=== PATIENT | female | born 1965 | race Caucasian/White ===

== ENCOUNTER → 2017-12-01 11:27 | Outpatient (CLI) | payer BC, SELFPAY ==
[2017-12-01 14:59] LABS: AST(SGOT) 23 U/L (15-37); Alanine Aminotransfer ALT/SGPT 36 U/L (13-56); Albumin, Serum 4.2 g/dL (3.2-5.0); Alkaline Phosphatase 90 U/L (45-117); Bilirubin, Direct 0.07 mg/dL (0.00-0.30); Cholesterol 220 mg/dL (200); Globulin 3.5 g/dL (2.2-4.2); High Density Lipoprotein 82 mg/dL; Protein, Total 7.7 g/dL (6.4-8.2); Triglycerides 113 mg/dL; Uric Acid 5.9 mg/dL (2.6-6.0); Very Low Density Lipoprotein 23 mg/dL (5-40)
== END ==
PROVIDERS: Visit Provider Family Medicine
DX: E78.5 Hyperlipidemia, unspecified (principal); M10.9 Gout, unspecified
CPT/HCPCS: 36415; 80061; 80076; 84550

== ENCOUNTER → 2018-02-08 14:30 | Outpatient (CLI) | payer BC, SELFPAY ==
--- NOTE | 2018-02-08 14:36 | RAD_ITS ---
STUDY: X-RAY - PELVIS REASON FOR EXAM: Female, 52 years old. Pain TECHNIQUE: One view of the pelvis was obtained. COMPARISON: None. FINDINGS: There is a non-specific bowel gas pattern. Normal visualized soft tissue structures. Normal bilateral iliac wings, sacroiliac joints and visualized sacrum. Normal visualized bilateral superior and inferior pubic rami. Normal pubic symphysis. Normal ischial tuberosities. Normal visualized right femoral head. Normal right acetabulum. Normal right hip joint. Normal visualized left femoral head. Normal left acetabulum. Normal left hip joint. RAD/Pelvis 1 or 2 Views IMPRESSION: Normal x-ray examination of the pelvis. Electronically Signed: Vinny Jimenez MD at 19:30 EDT , Service support ,
[2018-02-08 15:55] LABS: Absolute Lymphocyte Count 1.29 X10^3/ul (0.83-4.51); Absolute Neutrophil Count 3.4 X10^3/uL (2.0-7.7); Basophil# 0.02 X10^3/uL; Basophil% 0.4 % (0-1); Eosinophil# 0.13 X10^3/uL; Eosinophils% 2.5 % (0-5); Hemoglobin 14.3 g/dl (12.0-15.0); Lymphocyte # 1.29 X10^3/ul (4.0); Lymphocyte % 25.1 % (19-41); Mean Corp Hgb Conc 33.3 g/gl (32-36); Mean Corpuscular Hgb 32.5 pg (27.0-32.0); Mean Corpuscular Volume 97.7 fL (81-99); Mean Platelet Vol. 10.5 fl (6.2-12.0); Monocyte# 0.33 X10^3/uL; Monocyte% 6.4 % (0-10); Neutrophil # 3.35 X10^3/uL (2.7-7.7); Neutrophil % 65.4 % (47-70); Platelet Count 294 K/mm3 (150-450); RBC Distribution Width CV 13.1 % (11.6-14.6); RBC Distribution Width SD 46.2 fl (35.1-43.9); White Blood Count 5.1 K/mm3 (4.4-11.0)
[2018-02-08 15:57] LABS: POSITIVE COUNT NO; POSITIVE DIFFERENTIAL NO; POSITIVE MORPHOLOGY NO
[2018-02-08 16:05] LABS: Erythrocyte Sedimentation Rate 12 mm/hr (0-30)
[2018-02-08 16:17] LABS: ALB/GLOB Ratio 1.3 RATIO (0.9-2.4); AST(SGOT) 26 U/L (15-37); Alanine Aminotransfer ALT/SGPT 38 U/L (13-56); Albumin, Serum 4.4 g/dL (3.2-5.0); Alkaline Phosphatase 93 U/L (45-117); Anion Gap 7 (5-15); BUN 11 mg/dL (7-18); BUN/Creat Ratio 15.4 RATIO (10-20); CRP < 2.90 mg/L (0.0-3.0); Calcium,Total 9.7 mg/dL (8.5-10.1); Chloride 104 mmol/L (98-107); Creatinine, Serum 0.71 mg/dL (0.55-1.02); EST Glomerular Filtration Rate 92 mL/min (>60); Est Glom Filt Rate - Afr Amer 111 mL/min (>60); Globulin 3.5 g/dL (2.2-4.2); Glucose 78 mg/dL (74-106); Protein, Total 7.9 g/dL (6.4-8.2); Rheumatoid Factor < 10.0 IU/mL (<15); Sodium Level 140 mmol/L (136-145)
[2018-02-10 13:33] LABS: ANTINUCLEAR ANTIBODIES DIRECT Negative (Negative)
[2018-02-15 18:27] LABS: CCP IgG Antibodies 3 units (0-19); HEPATITIS B SURFACE AG Negative (Negative); HLA B27 Negative (.); Hep B Surface Antibodies Non Reactive (.); Hep C Antibodies <0.1 s/co ratio (0.0-0.9)
== END ==
LOC: MTRAD 14:34
PROVIDERS: Family Provider Family Medicine; PCP Family Medicine; Visit Provider Internal Medicine Rheumatology
DX: M06.4 Inflammatory polyarthropathy (principal); M79.7 Fibromyalgia; H35.30 Unspecified macular degeneration; I34.1 Nonrheumatic mitral (valve) prolapse; F41.9 Anxiety disorder, unspecified; F32.89 Other specified depressive episodes; E78.5 Hyperlipidemia, unspecified
CPT/HCPCS: 36415; 72170; 80053; 81374; 85025; 85652; 86038; 86140; 86200; 86431; 86706; 86803; 87340

== ENCOUNTER → 2018-04-13 11:34 | Outpatient (CLI) | payer BC, SELFPAY ==
[2018-04-13 14:27] LABS: Absolute Lymphocyte Count 1.33 X10^3/ul (0.83-4.51); Absolute Neutrophil Count 2.5 X10^3/uL (2.0-7.7); Basophil# 0.02 X10^3/uL; Basophil% 0.5 % (0-1); Eosinophil# 0.15 X10^3/uL; Eosinophils% 3.5 % (0-5); Hematocrit 42.4 % (37-47); Hemoglobin 13.7 g/dl (12.0-15.0); Lymphocyte # 1.33 X10^3/ul (4.0); Lymphocyte % 31.4 % (19-41); Mean Corp Hgb Conc 32.3 g/gl (32-36); Mean Corpuscular Hgb 31.4 pg (27.0-32.0); Mean Corpuscular Volume 97.2 fL (81-99); Mean Platelet Vol. 10.7 fl (6.2-12.0); Monocyte# 0.24 X10^3/uL; Monocyte% 5.7 % (0-10); Neutrophil # 2.49 X10^3/uL (2.7-7.7); Neutrophil % 58.9 % (47-70); Platelet Count 246 K/mm3 (150-450); RBC Distribution Width CV 13.4 % (11.6-14.6); RBC Distribution Width SD 47.7 fl (35.1-43.9); Red Blood Count 4.36 M/mm3 (4.2-5.4); White Blood Count 4.2 K/mm3 (4.4-11.0)
[2018-04-13 14:37] LABS: POSITIVE COUNT NO; POSITIVE DIFFERENTIAL NO; POSITIVE MORPHOLOGY NO
[2018-04-13 14:51] LABS: Anion Gap 8 (5-15); BUN 9 mg/dL (7-18); BUN/Creat Ratio 12.3 RATIO (10-20); Calcium,Total 9.4 mg/dL (8.5-10.1); Chloride 105 mmol/L (98-107); Creatinine, Serum 0.73 mg/dL (0.55-1.02); EST Glomerular Filtration Rate 89 mL/min (>60); Est Glom Filt Rate - Afr Amer 107 mL/min (>60); Glucose 85 mg/dL (74-106); Potassium 4.4 mmol/L (3.5-5.1); Sodium Level 141 mmol/L (136-145); Thyroid Stim Hormone (TSH) 1.92 uIU/mL (0.358-3.74)
== END ==
PROVIDERS: Family Provider Family Medicine; PCP Family Medicine; Visit Provider Family Medicine
DX: R53.83 Other fatigue (principal)
CPT/HCPCS: 36415; 80048; 84443; 85025

== ENCOUNTER → 2018-05-02 05:58 | Outpatient (CLI) | payer BC, SELFPAY ==
--- NOTE | 2018-05-02 18:19 | STRESSREP ---
Stress Test Report Date: 05/02/2018 Procedure: Exercise tolerance test/imaging study Indications: Chest pain Consent: Per the patient Procedure: The patient exercised on a Alexis protocol for 8 minutes completing Stage II and 2 minutes of Stage III achieving a peak heart rate of 160 bpm (94 % predicted maximal heart rate) with a peak blood pressure 156/80 mmHg and a peak MET capacity of 9 METs. The baseline ECG demonstrated sinus rhythm. The peak exercise ECG demonstrated no obvious ECG changes. There were no cardiac dysrhythmias pretest, during exercise, or recovery. The functional capacity was considered good. There was a dull chest discomfort during early recovery with spontaneous resolution. The examination was discontinued secondary to dyspnea. Impression: 1. Technically adequate (percent predicted maximal heart rate greater than 85%) exercise tolerance test 2. Peak exercise ECG with no obvious ECG changes 3. There were no cardiac dysrhythmias pretest, during exercise, or recovery. 4. Nuclear images pending Myocardial perfusion imaging study: Technique: The patient was injected with 11.6 mCi of technetium 99m Cardiolite and subsequently rest SPECT Cardiolite nuclear imaging was obtained in the horizontal long, vertical long, and short axis views. The patient exercised on a Alexis protocol for 8 minutes completing Stage 2 and 2 minutes of Stage III achieving a peak heart rate of 160 bpm (94 % predicted maximal heart rate) with a peak blood pressure 156/80 mmHg and a peak MET capacity of 9 METs. The patient was injected with 33.7 mCi of technetium 99m Cardiolite and subsequently stress SPECT Cardiolite nuclear imaging was obtained in the horizontal long, vertical long, and short axis views. A gated Cardiolite study at peak stress was obtained. Interpretation: Rest and stress SPECT Cardiolite nuclear imaging status post realignment, normalization, and attenuation correction, demonstrates to be uniform tracer uptake at rest. Status post stress there is a small area of subtle diminished tracer uptake in the mid anteroseptal segments. There is end systolic thickening and brightening. The gated Cardiolite study demonstrates myocardial thickening and inward wall motion. The reported LVEF is 56 %. Impression: 1. Rest and stress SPECT Cardiolite nuclear imaging demonstrate no active uniform tracer uptake at rest and status post stress there is a small area of subtle diminished tracer uptake in the mid anteroseptal segments potentially compatible shifting soft tissue attenuation/artifact and would be considered equivocal for stress-induced myocardial ischemia. 2. The gated Cardiolite study reports an LVEF of 56 %. This note was generated with [employer] software. It may contain incorrect words, spelling, and punctuation that were not noted in checking the note before signing.
--- NOTE | 2018-05-02 18:29 | STRESSREP_ITS ---
Stress Test Report Date: 05/02/2018 Procedure: Exercise tolerance test/imaging study Indications: Chest pain Consent: Per the patient Procedure: The patient exercised on a Alexis protocol for 8 minutes completing Stage II and 2 minutes of Stage III achieving a peak heart rate of 160 bpm (94 % predicted maximal heart rate) with a peak blood pressure 156/80 mmHg and a peak MET capacity of 9 METs. The baseline ECG demonstrated sinus rhythm. The peak exercise ECG demonstrated no obvious ECG changes. There were no cardiac dysrhythmias pretest, during exercise, or recovery. The functional capacity was considered good. There was a dull chest discomfort during early recovery with spontaneous resolution. The examination was discontinued secondary to dyspnea. Impression: 1. Technically adequate (percent predicted maximal heart rate greater than 85% ) exercise tolerance test 2. Peak exercise ECG with no obvious ECG changes 3. There were no cardiac dysrhythmias pretest, during exercise, or recovery. 4. Nuclear images pending Myocardial perfusion imaging study: Technique: The patient was injected with 11.6 mCi of technetium 99m Cardiolite and subsequently rest SPECT Cardiolite nuclear imaging was obtained in the horizontal long, vertical long, and short axis views. The patient exercised on a Alexis protocol for 8 minutes completing Stage 2 and 2 minutes of Stage III achieving a peak heart rate of 160 bpm (94 % predicted maximal heart rate) with a peak blood pressure 156/80 mmHg and a peak MET capacity of 9 METs. The patient was injected with 33.7 mCi of technetium 99m Cardiolite and subsequently stress SPECT Cardiolite nuclear imaging was obtained in the horizontal long, vertical long, and short axis views. A gated Cardiolite study at peak stress was obtained. Interpretation: Rest and stress SPECT Cardiolite nuclear imaging status post realignment, normalization, and attenuation correction, demonstrates to be uniform tracer uptake at rest. Status post stress there is a small area of subtle diminished tracer uptake in the mid anteroseptal segments. There is end systolic thickening and brightening. The gated Cardiolite study demonstrates myocardial thickening and inward wall motion. The reported LVEF is 56 %. Impression: 1. Rest and stress SPECT Cardiolite nuclear imaging demonstrate no active uniform tracer uptake at rest and status post stress there is a small area of subtle diminished tracer uptake in the mid anteroseptal segments potentially compatible shifting soft tissue attenuation/artifact and would be considered equivocal for stress-induced myocardial ischemia. 2. The gated Cardiolite study reports an LVEF of 56 %. This note was generated with [employer] software. It may contain incorrect words, spelling, and punctuation that were not noted in checking the note before signing.
== END ==
PROVIDERS: Family Provider Family Medicine; PCP Family Medicine; Visit Provider Family Medicine
DX: R07.9 Chest pain, unspecified (principal)
CPT/HCPCS: 78452; 93017; A9500; A4216

== ENCOUNTER → 2018-09-29 13:57 | Outpatient (CLI) | payer BC, SELFPAY ==
[2018-09-29 15:57] LABS: Anion Gap 8 (5-15); BUN 13 mg/dL (7-18); BUN/Creat Ratio 19.1 RATIO (10-20); Calcium,Total 9.2 mg/dL (8.5-10.1); Chloride 107 mmol/L (98-107); Cholesterol 216 mg/dL (200); Creatinine, Serum 0.68 mg/dL (0.55-1.02); EST Glomerular Filtration Rate 96 mL/min (>60); Est Glom Filt Rate - Afr Amer 117 mL/min (>60); Glucose 81 mg/dL (74-106); High Density Lipoprotein 85 mg/dL; Potassium 4.5 mmol/L (3.5-5.1); Sodium Level 142 mmol/L (136-145); Triglycerides 99 mg/dL; Very Low Density Lipoprotein 20 mg/dL (5-40)
--- OUTSIDE RECORDS SUMMARY | 2018-11-24 13:20 | XMS RPT_ITS ---
:1965 Author Organization OHIP Care Team Providers Name Role Phone RYDER RICHARDSON Attending Unavailable FARHAN KERR Referring Unavailable FARHAN KERR Primary Care Unavailable RYDER RICHARDSON Attending Unavailable FARHAN KERR Referring Unavailable FARHAN KERR Primary Care Unavailable FARHAN KERR Primary Care Unavailable Farhan Kerr Attending Unavailable Farhan Kerr Primary Care Unavailable Farhan Wu Attending Unavailable Farhan Kerr Referring Unavailable Yary Reese Attending Unavailable Yary Reese Referring Unavailable Farhan Kerr Primary Care Unavailable Kerr, Farhan Attending Unavailable Kerr, Farhan Attending Unavailable Kerr, Farhan Referring Unavailable Harish, Farhan Primary Care Unavailable Kerr, Farhan Attending Unavailable Kerr, Farhan Primary Care Unavailable PROBLEMS PROBLEMS DATE TYPE CONDITION / CODE ATTENDING STATUS SOURCE 09/29/2018 Unknown I10 - Essential Farhan Kerr Active [place] (primary[facility] hypertension / Hospital I10(ICD-10) Repository 07/28/2018 Admitting Follow-up / 145() DEBRA, Active [place] [facility] diagnosis [facility] Repository 07/28/2018 Admitting Encounter for DEBRA, Active [facility] diagnosis screening mammogram [facility] for malignant [facility] neoplasm of breast / Center Z12.31(ICD-10) Repository 06/05/2018 Unknown R07.9 - Chest pain, [place], Active [place] unspecified / [facility] R07.9(ICD-10) Hospital Repository 02/08/2018 Unknown 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[place], Active [place] polyarthropathy / [facility] M06.4(ICD-10) Hospital Repository 02/08/2018 Unknown M79.7 - Fibromyalgia [place], Active [place] / M79.7(ICD-10) [facility] Repository 02/08/2018 Unknown H35.30 - Unspecified [place], Active [place] macular degeneration [facility] / H35.30(ICD-10) Hospital Repository 02/08/2018 Unknown I34.1 - Nonrheumatic [place], Active [place] mitral (valve) [facility] prolapse / Hospital I34.1(ICD-10) Repository 02/08/2018 Unknown F41.9 - Anxiety [place], Active [place] disorder, [facility] unspecified / Hospital F41.9(ICD-10) Repository 02/08/2018 Unknown F32.89 - Other [place], Active [place] specified depressive [facility] episodes / Hospital F32.89(ICD-10) Repository 02/08/2018 Unknown E78.5 - [place], Active [place] Hyperlipidemia, [facility] unspecified / Hospital E78.5(ICD-10) Repository 01/30/2018 Admitting Encounter for NA Active [facility] diagnosis screening for [facility] malignant neoplasm [facility] of colon / Center Z12.11(ICD-10) Repository 01/30/2018 Admitting Diarrhea, NA Active [place] [facility] diagnosis unspecified / [facility] R19.7(ICD-10) [facility] Repository PROCEDURES PROCEDURES No Procedure Records FoundRESULTS RESULTS BASIC METABOLIC Collected: 09/29/2018 Status: F Source: [place] PROFILE (BMP) 1:58 PM [facility] REPOSITORY TYPE CODE TESTS RESULT OUT OF RANGE REFERENCE UNITS LAB L501.0100 74-106 mg/dL Normal GLU 81 Result Comment: Please note revised GLUCOSE reference range effective 2017. LAB L501.1000 7-18 mg/dL Normal BUN 13 LAB L501.1100 0.55-1.02 mg/dL Normal CREAT,SERUM 0.68 Result Comment: The validity of the calculated GFR AND GFRAA in patients over 70 years has not been determined. Clinical correlation is essential. LAB L501.1110 >60 mL/min Normal EST GFR 96 Result Comment: Non- GFR Calc LAB L501.1115 >60 mL/min Normal EST GFR - AA 117 Result Comment: GFR Calc LAB L501.1300 10-20 RATIO Normal BUN/CRE 19.1 LAB L501.2200 8.5-10.1 mg/dL CA Normal 9.2 LAB L501.5300 136-145 mmol/L NA Normal 142 LAB L501.5600 3.5-5.1 mmol/L K Normal 4.5 LAB L501.5900 98-107 mmol/L CL Normal 107 LAB L501.6100 21.0-32.0 mmol/L Normal CO2 27.0 LAB L501.6200 5-15 Normal GAP 8 Performed By: #### L500.2500, L500.4100 #### [facility] [place], [address] LIPID PROFILE Collected: 09/29/2018 Status: F Source: [place] 1:58 PM [facility] REPOSITORY TYPE CODE TESTS RESULT OUT OF RANGE REFERENCE UNITS LAB L501.4900 200 mg/dL High CHOL 216 Result Comment: <200 mg/dL Desirable 200-240 mg/dL Borderline >240 mg/dL High Risk LAB L501.5000 mg/dL Normal TRIG 99 Result Comment: The drugs N-Acetylcysteine and Metamizole may falsely depress this assay. Serum Triglycerides Reference Interval Normal <150 mg/dL Borderline high 150 - 199 mg/dL High 200 - 499 mg/dL Very High > or = 500 mg/dL LAB L501.6400 mg/dL Normal HDL 85 Result Comment: The drugs N-Acetylcysteine and Metamizole may falsely depress this assay. Reference Range HDL <40 mg/dL Low HDL Cholesterol HDL >or= 60 mg/dL High HDL Cholesterol LAB L501.6500 0-130 mg/dL Normal LDL 111 LAB L501.6600 5-40 mg/dL Normal VLDL 20 Performed By: #### L500.2500, L500.4100 #### [facility] [address] [place], [address] MAMMO SCREENING WITH Observed: 07/28/2018 Status: F Source: [facility] KALIN LEFT 10:48 AM [facility] REPOSITORY EXAM: MAMMO SCREENING WITH KALIN LEFT, 07/28/2018 10:35 AM CLINICAL INDICATIONS: Screening. History of mastectomy on the right 1999. No current complaints. Here for annual exam COMPARISON: July 27, 2017, July 15, 2016, July 09, 2015, July 03, 2014, June 19, 2013, 812 TECHNIQUE: 2-D MLO and CC views were obtained of the left breast. 3-D MLO and CC digital tomosynthesis images were also acquired. Computer aided detection was utilized. FINDINGS: The breast has scattered areas of fibroglandular density. Post reduction changes are again seen. Stable core biopsy clips. Benign-appearing calcifications and fat necrosis. There are no new suspicious masses, calcifications, or architectural distortions. IMPRESSION: No specific mammographic evidence of malignancy. BI-RADS: 2: Benign Recommendation: Routine mammography. Recommendation Laterality: Left SS REPORT Observed: 05/02/2018 Status: F Source: [place] 6:29 PM [facility] REPOSITORY [facility] Cardiovascular Services [address] [place] [address] MR#: [id number] Acct: [id number] Name: PATRICIO CABALLERO Rep #: [id number] : 1965 52 From: Farhan Wu MD Primary Care: Farhan Kerr MD Status: REG CLI Ordering Dr: Sex: F C Stress Test Report Date: 05/02/2018 Procedure: Exercise tolerance test/imaging study Indications: Chest pain Consent: Per the patient Procedure: The patient exercised on a Alexis protocol for 8 minutes completing Stage II and 2 minutes of Stage III achieving a peak heart rate of 160 bpm (94 % predicted maximal heart rate) with a peak blood pressure 156/80 mmHg and a peak MET capacity of 9 METs. The baseline ECG demonstrated sinus rhythm. The peak exercise ECG demonstrated no obvious ECG changes. There were no cardiac dysrhythmias pretest, during exercise, or recovery. The functional capacity was considered good. There was a dull chest discomfort during early recovery with spontaneous resolution. The examination was discontinued secondary to dyspnea. Impression: 1. Technically adequate (percent predicted maximal heart rate greater than 85%) exercise tolerance test 2. Peak exercise ECG with no obvious ECG changes 3. There were no cardiac dysrhythmias pretest, during exercise, or recovery. 4. Nuclear images pending Myocardial perfusion imaging study: Technique: The patient was injected with 11.6 mCi of technetium 99m Cardiolite and subsequently rest SPECT Cardiolite nuclear imaging was obtained in the horizontal long, vertical long, and short axis views. The patient exercised on a Alexis protocol for 8 minutes completing Stage 2 and 2 minutes of Stage III achieving a peak heart rate of 160 bpm (94 % predicted maximal heart rate) with a peak blood pressure 156/80 mmHg and a peak MET capacity of 9 METs. The patient was injected with 33.7 mCi of technetium 99m Cardiolite and subsequently stress SPECT Cardiolite nuclear imaging was obtained in the horizontal long, vertical long, and short axis views. A gated Cardiolite study at peak stress was obtained. Interpretation: Rest and stress SPECT Cardiolite nuclear imaging status post realignment, normalization, and attenuation correction, demonstrates to be uniform tracer uptake at rest. Status post stress there is a small area of subtle diminished tracer uptake in the mid anteroseptal segments. There is end systolic thickening and brightening. The gated Cardiolite study demonstrates myocardial thickening and inward wall motion. The reported LVEF is 56 %. Impression: 1. Rest and stress SPECT Cardiolite nuclear imaging demonstrate no active uniform tracer uptake at rest and status post stress there is a small area of subtle diminished tracer uptake in the mid anteroseptal segments potentially compatible shifting soft tissue attenuation/artifact and would be considered equivocal for stress-induced myocardial ischemia. 2. The gated Cardiolite study reports an LVEF of 56 %. This note was generated with The Switchation software. It may contain incorrect words, spelling, and punctuation that were not noted in checking the note before signing. 05/02/181828 <Electronically signed by Farhan Wu MD> Date Farhan Wu MD CC: Farhan Kerr MD Date Dictated: 05/02/181818 Date Transcribed: 05/02/181818 Wood Form Builder: PM Signed CBC W/DIFF, AUTOMATED Collected: 04/13/2018 Status: F Source: [place] 11:36 AM [facility] REPOSITORY TYPE CODE TESTS RESULT OUT OF RANGE REFERENCE UNITS LAB L100.1000 4.4-11.0 K/mm3 Low WBC 4.2 LAB L100.1200 4.2-5.4 M/mm3 Normal RBC 4.36 LAB L100.1300 12.0-15.0 g/dl Normal HGB 13.7 LAB L100.1400 37-47 % Normal HCT 42.4 LAB L100.1500 81-99 fL Normal MCV 97.2 LAB L100.1600 27.0-32.0 pg Normal MCH 31.4 LAB L100.1700 32-36 g/gl Normal MCHC 32.3 LAB L100.1810 11.6-14.6 % Normal RDW CV 13.4 LAB L100.1820 35.1-43.9 fl High RDW SD 47.7 LAB L100.1900 150-450 K/mm3 Normal PLT 246 LAB L100.2000 6.2-12.0 fl Normal MPV 10.7 LAB L100.2100 47-70 % Normal NEUT% 58.9 LAB L100.2200 19-41 % Normal LY% 31.4 LAB L100.2300 0-10 % Normal MONO% 5.7 LAB L100.2400 0-5 % Normal EO% 3.5 LAB L100.2500 0-1 % Normal BASO% 0.5 LAB L100.2550 0.0-0.9 % Normal IM GRAN % 0.000 Result Comment: IG% - Immature Granulocytes (promyelocytes, myelocytes and metamyelocytes) > 1% indicates that a LEFT SHIFT is Present. LAB L100.2620 2.0-7.7 X10 3/uL Normal Absolute Neut 2.5 LAB L100.2720 0.83-4.51 X10 3/ul Normal Absolute Lymph 1.33 Performed By: #### L100.0100 #### [facility] [address] [place], [place], [id number] BASIC METABOLIC Collected: 04/13/2018 Status: F Source: [place] PROFILE (BMP) 11:36 AM [facility] REPOSITORY TYPE CODE TESTS RESULT OUT OF RANGE REFERENCE UNITS LAB L501.0100 74-106 mg/dL Normal GLU 85 Result Comment: Please note revised GLUCOSE reference range effective 2017. LAB L501.1000 7-18 mg/dL Normal BUN 9 LAB L501.1100 0.55-1.02 mg/dL Normal CREAT,SERUM 0.73 Result Comment: The validity of the calculated GFR AND GFRAA in patients over 70 years has not been determined. Clinical correlation is essential. LAB L501.1110 >60 mL/min Normal EST GFR 89 Result Comment: Non- GFR Calc LAB L501.1115 >60 mL/min Normal EST GFR - AA 107 Result Comment: GFR Calc LAB L501.1300 10-20 RATIO Normal BUN/CRE 12.3 LAB L501.2200 8.5-10.1 mg/dL CA Normal 9.4 LAB L501.5300 136-145 mmol/L NA Normal 141 LAB L501.5600 3.5-5.1 mmol/L K Normal 4.4 LAB L501.5900 98-107 mmol/L CL Normal 105 LAB L501.6100 21.0-32.0 mmol/L Normal CO2 28.0 LAB L501.6200 5-15 Normal GAP 8 Performed By: #### L500.2500, L501.9520 #### [facility] [address] [place], [address] THYROID STIM HORMONE Collected: 04/13/2018 Status: F Source: [place] (TSH) 11:36 AM [facility] REPOSITORY TYPE CODE TESTS RESULT OUT OF RANGE REFERENCE UNITS LAB L501.9520 0.358-3.74 uIU/mL Normal TSH 1.92 Performed By: #### L500.2500, L501.9520 #### [facility] [address] [place], [place], [address] CBC W/DIFF, AUTOMATED Collected: 02/08/2018 Status: F Source: [place] 2:48 PM [facility] REPOSITORY TYPE CODE TESTS RESULT OUT OF RANGE REFERENCE UNITS LAB L100.1000 4.4-11.0 K/mm3 Normal WBC 5.1 LAB L100.1200 4.2-5.4 M/mm3 Normal RBC 4.40 LAB L100.1300 12.0-15.0 g/dl Normal HGB 14.3 LAB L100.1400 37-47 % Normal HCT 43.0 LAB L100.1500 81-99 fL Normal MCV 97.7 LAB L100.1600 27.0-32.0 pg High MCH 32.5 LAB L100.1700 32-36 g/gl Normal MCHC 33.3 LAB L100.1810 11.6-14.6 % Normal RDW CV 13.1 LAB L100.1820 35.1-43.9 fl High RDW SD 46.2 LAB L100.1900 150-450 K/mm3 Normal PLT 294 LAB L100.2000 6.2-12.0 fl Normal MPV 10.5 LAB L100.2100 47-70 % Normal NEUT% 65.4 LAB L100.2200 19-41 % Normal LY% 25.1 LAB L100.2300 0-10 % Normal MONO% 6.4 LAB L100.2400 0-5 % Normal EO% 2.5 LAB L100.2500 0-1 % Normal BASO% 0.4 LAB L100.2550 0.0-0.9 % Normal IM GRAN % 0.200 Result Comment: IG% - Immature Granulocytes (promyelocytes, myelocytes and metamyelocytes) > 1% indicates that a LEFT SHIFT is Present. LAB L100.2620 2.0-7.7 X10 3/uL Normal Absolute Neut 3.4 LAB L100.2720 0.83-4.51 X10 3/ul Normal Absolute Lymph 1.29 Performed By: #### L100.0100, L101.9900 #### [facility] [address] [place], [address] ERYTHROCYTE SED RATE Collected: 02/08/2018 Status: F Source: [place] 2:48 PM [facility] REPOSITORY TYPE CODE TESTS RESULT OUT OF RANGE REFERENCE UNITS LAB L102.0000 0-30 mm/hr Normal SED RATE 12 Performed By: #### L100.0100, L101.9900 #### [facility] [address] [place], [address] COMPREHENSIVE METABOLIC Collected: 02/08/2018 Status: F Source: [place] PROFIL 2:48 PM [facility] REPOSITORY TYPE CODE TESTS RESULT OUT OF RANGE REFERENCE UNITS LAB L501.0100 74-106 mg/dL Normal GLU 78 Result Comment: Please note revised GLUCOSE reference range effective 2017. LAB L501.1000 7-18 mg/dL Normal BUN 11 LAB L501.1100 0.55-1.02 mg/dL Normal CREAT,SERUM 0.71 Result Comment: The validity of the calculated GFR AND GFRAA in patients over 70 years has not been determined. Clinical correlation is essential. LAB L501.1110 >60 mL/min Normal EST GFR 92 Result Comment: Non- GFR Calc LAB L501.1115 >60 mL/min Normal EST GFR - AA 111 Result Comment: GFR Calc LAB L501.1300 10-20 RATIO Normal BUN/CRE 15.4 LAB L501.1500 6.4-8.2 g/dL T Normal PROT 7.9 LAB L501.1800 3.2-5.0 g/dL Normal ALB 4.4 LAB L501.1950 2.2-4.2 g/dL Normal GLOB 3.5 LAB L501.2000 0.9-2.4 RATIO Normal A/G 1.3 LAB L501.2200 8.5-10.1 mg/dL CA Normal 9.7 LAB L501.4100 15-37 U/L Normal AST 26 LAB L501.4305 45-117 U/L Normal ALK P 93 LAB L501.4405 13-56 U/L Normal ALT 38 Result Comment: Please note revised ALT reference range effective 2017. LAB L501.4600 0.20-1.00 mg/dL Normal T BILI 0.20 LAB L501.5300 136-145 mmol/L Normal NA 140 LAB L501.5600 3.5-5.1 mmol/L Normal K 4.0 LAB L501.5900 98-107 mmol/L Normal CL 104 LAB L501.6100 21.0-32.0 mmol/L Normal CO2 29.0 LAB L501.6200 5-15 Normal GAP 7 Performed By: #### L500.4050, L501.6710, L505.7010 #### [facility] [address] [place], [place], [id number] CRP Collected: 02/08/2018 Status: F Source: [place] 2:48 PM [facility] REPOSITORY TYPE CODE TESTS RESULT OUT OF RANGE REFERENCE UNITS LAB L501.6710 0.0-3.0 mg/L Normal < 2.90 C-REACTIVE PROT Result Comment: C-Reactive Protein (CRP) provides useful information for the diagnosis, therapy and monitoring of inflammatory processes and associated diseases. For the evaluation of Relative Risk for Cardiovascular Disease, a High Sensitivity CRP (HSCRP) should be ordered. Performed By: #### L500.4050, L501.6710, L505.7010 #### [facility] [address] [facility] [id number] RHEUMATOID FACTOR Collected: 02/08/2018 Status: F Source: [place] 2:48 PM [facility] REPOSITORY TYPE CODE TESTS RESULT OUT OF RANGE REFERENCE UNITS LAB L505.7010 <15 IU/mL Normal RHEUMATOID FAC < 10.0 Performed By: #### L500.4050, L501.6710, L505.7010 #### [facility] [address] [place], [place], [id number] ANTINUCLEAR ANTIBODIES Collected: 02/08/2018 Status: F Source: [place] DIRECT 2:48 PM [facility] REPOSITORY TYPE CODE TESTS RESULT OUT OF RANGE REFERENCE UNITS LAB L3100.5475 Negative Normal Negative [place]-DIRECT Result Comment: Performed at: [address] [id number] District Sales Manager: Efrem Ley PhD, Phone: [phone] Performed By: #### L3100.5475 #### [facility] (refer to report for specific site) refer to report for address and phone number HEPATITIS B SURFACE Collected: 02/08/2018 Status: F Source: [place] AG 2:48 PM [facility] REPOSITORY TYPE CODE TESTS RESULT OUT OF RANGE REFERENCE UNITS LAB L3100.0400 Negative Normal HB Negative SURF AG Result Comment: Performed at: - [facility] [id number] District Sales Manager: Efrem Ley PhD, Phone: [phone] Performed at: - [facility] [id number] District Sales Manager: Gonzales Garcia PhD, Phone: [phone] Performed at: - [facility] [id number] District Sales Manager: Arnulfo Kim MD, Phone: [phone] Performed By: #### L3100.0390, L3100.0528, L3100.0625, L3410.1400, L4600.0100 #### [facility] (refer to report for specific site) refer to report for address and phone number HEP B SURFACE Collected: 02/08/2018 Status: F Source: [place] ANTIBODIES 2:48 PM [facility] REPOSITORY TYPE CODE TESTS RESULT OUT OF RANGE REFERENCE UNITS LAB L3100.0528 . Normal Hep B Non Reactive Arash AB Result Comment: Non Reactive: Inconsistent with immunity, less than 10 mIU/mL Reactive: Consistent with immunity, greater than 9.9 mIU/mL Performed By: #### L3100.0390, L3100.0528, L3100.0625, L3410.1400, L4600.0100 #### [facility] (refer to report for specific site) refer to report for address and phone number HEPATITIS C ANTIBODIES Collected: 02/08/2018 Status: F Source: [place] 2:48 PM [facility] REPOSITORY TYPE CODE TESTS RESULT OUT OF RANGE REFERENCE UNITS LAB L3100.0650 0.0-0.9 s/co ratio Normal HEP C AB <0.1 Result Comment: Negative: < 0.8 Indeterminate: 0.8 - 0.9 Positive: > 0.9 The CDC recommends that a positive HCV antibody result be followed up with a HCV Nucleic Acid Amplification test (636063). Performed By: #### L3100.0390, L3100.0528, L3100.0625, L3410.1400, L4600.0100 #### [facility] (refer to report for specific site) refer to report for address and phone number HLA B27 Collected: 02/08/2018 Status: F Source: [place] 2:48 PM [facility] REPOSITORY TYPE CODE TESTS RESULT OUT OF RANGE REFERENCE UNITS LAB L3410.1500 . Normal HLA Negative B27 Result Comment: HLA-B*27 Negative B27 allele interpretation for all loci based on IMGT/HLA database version 3.27 This test was developed and its performance characteristics determined by [facility]. It has not been cleared or approved by the Food and Drug Administration. [facility] CLIA ID Number [id number] This test was performed using PCR (Polymerase Chain Reaction)/SSOP (Sequence Specific Oligonucleotide Probes) technique. SBT (Sequence Based Typing) and/or SSP (Sequence Specific Primers) may be used as supplemental methods when necessary. Please contact [facility] Customer Service at if you have any questions. Director of [facility] Laboratory Dr Gonzales Garcia, PhD Performed By: #### L3100.0390, L3100.0528, L3100.0625, L3410.1400, L4600.0100 #### [facility] (refer to report for specific site) refer to report for address and phone number CCP IGG ANTIBODIES Collected: 02/08/2018 Status: F Source: [place] 2:48 PM [facility] REPOSITORY TYPE CODE TESTS RESULT OUT OF RANGE REFERENCE UNITS LAB L4600.0100 0-19 units Normal ANTI-CCP 3 [id number] Result Comment: Negative <20 Weak positive 20 - 39 Moderate positive 40 - 59 Strong positive >59 Performed By: #### L3100.0390, L3100.0528, L3100.0625, L3410.1400, L4600.0100 #### [facility] (refer to report for specific site) refer to report for address and phone number PELVIS 1 OR 2 VIEWS Observed: 02/08/2018 Status: F Source: [place] 2:37 PM [facility] REPOSITORY [facility] Imaging Services [address] [place] [address] Pelvis 1 or 2 Views MR#: [id number] Acct: [id number] Name: PATRICIO CABALLERO Rep #: [id number] : 1965 F 52 From: Vinny Jimenez MD PCP: Farhan Kerr MD Status: REG CLI Study: Pelvis 1 or 2 Views Date of Exam: 02/08/18 Exam# [id number] Ordering Dr: Yary Reese MD STUDY: X-RAY - PELVIS REASON FOR EXAM: Female, 52 years old. Pain TECHNIQUE: One view of the pelvis was obtained. COMPARISON: None. FINDINGS: There is a non-specific bowel gas pattern. Normal visualized soft tissue structures. Normal bilateral iliac wings, sacroiliac joints and visualized sacrum. Normal visualized bilateral superior and inferior pubic rami. Normal pubic symphysis. Normal ischial tuberosities. Normal visualized right femoral head. Normal right acetabulum. Normal right hip joint. Normal visualized left femoral head. Normal left acetabulum. Normal left hip joint. RAD/Pelvis 1 or 2 Views IMPRESSION: Normal x-ray examination of the pelvis. Electronically Signed: Vinny Jimenez MD at 19:30 EDT , Service support , CC: Yary Reese MD; Farhan Kerr MD Wood Form Builder: Signed LIVER PROFILE Collected: 12/01/2017 Status: F Source: [place] 11:28 AM [facility] REPOSITORY TYPE CODE TESTS RESULT OUT OF RANGE REFERENCE UNITS LAB L501.1500 6.4-8.2 g/dL Normal T PROT 7.7 LAB L501.1800 3.2-5.0 g/dL Normal ALB 4.2 LAB L501.1950 2.2-4.2 g/dL Normal GLOB 3.5 LAB L501.4100 15-37 U/L Normal AST 23 LAB L501.4305 45-117 U/L Normal ALK P 90 LAB L501.4405 13-56 U/L Normal ALT 36 Result Comment: Please note revised ALT reference range effective 2017. LAB L501.4600 0.20-1.00 mg/dL Normal T BILI 0.50 LAB L501.4700 0.00-0.30 mg/dL Normal D BILI 0.07 Performed By: #### L500.3400, L500.4100, L501.1400 #### [facility] [address] [place], [place], [id number] LIPID PROFILE Collected: 12/01/2017 Status: F Source: [place] 11:28 AM [facility] REPOSITORY TYPE CODE TESTS RESULT OUT OF RANGE REFERENCE UNITS LAB L501.4900 200 mg/dL High CHOL 220 Result Comment: <200 mg/dL Desirable 200-240 mg/dL Borderline >240 mg/dL High Risk LAB L501.5000 mg/dL Normal TRIG 113 Result Comment: The drugs N-Acetylcysteine and Metamizole may falsely depress this assay. Serum Triglycerides Reference Interval Normal <150 mg/dL Borderline high 150 - 199 mg/dL High 200 - 499 mg/dL Very High > or = 500 mg/dL LAB L501.6400 mg/dL Normal HDL 82 Result Comment: The drugs N-Acetylcysteine and Metamizole may falsely depress this assay. Reference Range HDL <40 mg/dL Low HDL Cholesterol HDL >or= 60 mg/dL High HDL Cholesterol LAB L501.6500 0-130 mg/dL Normal LDL 115 LAB L501.6600 5-40 mg/dL Normal VLDL 23 Performed By: #### L500.3400, L500.4100, L501.1400 #### [facility] [address] [facility] [place], [place], [id number] URIC ACID Collected: 12/01/2017 Status: F Source: [place] 11:28 AM [facility] REPOSITORY TYPE CODE TESTS RESULT OUT OF RANGE REFERENCE UNITS LAB L501.1400 2.6-6.0 mg/dL Normal URIC 5.9 Result Comment: The drugs N-Acetylcysteine and Metamizole may falsely depress this assay. Performed By: #### L500.3400, L500.4100, L501.1400 #### [facility] [address] [place], [address] ALLERGIES ALLERGIES No Allergies Records FoundENCOUNTERS ENCOUNTERS ADMIT/DISCHARGE ACCOUNT NUMBER ADMITTING ENCOUNTER LOCATION SOURCE CLASS 09/29/2018 [id number] Ambulatory [facility] ding:MFPLAB Repository 07/28/2018 [id number] Ambulatory Building:[facility] Repository 07/28/2018 [id number] Ambulatory Building:[facility] Repository 05/02/2018 [id number] Ambulatory BMSBuilding: [facility] Repository 05/02/2018 [id number] Ambulatory [facility] ding:[facility] Repository 04/13/2018 [id number] Ambulatory [facility] ding:MFPLAB Repository 02/08/2018 [id number] Ambulatory [facility] ding:MTRAD Repository 01/30/2018 [id number] Ambulatory Building:[facility] Repository 12/01/2017 [id number] Ambulatory [facility] ding:MFPLAB Repository PAYERS PAYERS ENCOUNTER GUARANTOR PAYER SUBSCRIBER SOURCE 09/29/2018 Nita Siddiqui Primary Nita [id number] [facility] VaughtD[facility]: [facility] [place]: [id number] [id number] Repository 35406Qwr: 330) Date:1804-84-75CY [phone] ([facility] [id number], [place] [address]UF: 09/29/2018 Secondary NOT GIVENUNK [place] Insurance:SELF PAY [facility] Number: Effective Repository Date:2018-09-29 07/28/2018 PATRICIO [facility]OB[facility] [id number] University [id number] O POSPolicy Number: [address] [place] [address] [id number], [place] Date:Plan 62327Zuu: (000) Repository 25499Smu: (000) Name:MANAGED CARE 000-0000 (HP) 000-0000 () 07/28/2018 PATRICIO Lopes Primary NITA VAUGHTDOB: [facility] VAUGHTDOB: Insurance:ANTHEM O [id number] University [id number] O POSPolicy Number: [address] [facility] [id number] [place]aton, [place] Date:Plan 757[address]Ink: (000) Repository 24221Qcv: (000) Name:MANAGED CARE 000-0000 (HP) 000-0000 (HP) 05/02/2018 Nita Siddiqui Primary Nita Siddiqui [place] [id number] Insurance:ANTHEMPolic VaughtDOB: [facility] [place] [facility] Number: [id number], [place] [id number] Repository [address]31[address]Wgj: (330) Date:4318-26-30GS [phone] () [id number] [place] [address]FW: 05/02/2018 Secondary NOT GIVENUNK [place] Insurance:SELF PAY [facility] Number: Effective Repository Date:2018-05-02 05/02/2018 Nita Siddiqui Primary Nita Siddiqui [place] [id number] Insurance:ANTHEMPolic VaughtDOB: [facility] Number: [id number], [place] [id number] Repository 47[address]Wrk: (330) Date:5833-25-52GD [phone] () [id number] [place] [address]OA: 05/02/2018 Secondary NOT GIVENUNK [place] Insurance:SELF PAY [facility] Number: Effective Repository Date:2018-04-19 04/13/2018 Nita Siddiqui Primary Nita Siddiqui [place] [id number] Insurance:ANTHEMPolic VaughtDOB: [facility] [place] [facility] Number: [id number], [place] [id number] Repository [address]Uvh: (330) Date:4654-99-08LT [phone] () 647[place]KLUWYELMILWA[place], [place] [address]DC: 04/13/2018 Secondary NOT GIVENUNK [place] Insurance:SELF PAY [facility] Number: Effective Repository Date:2018-04-13 02/08/2018 Nita Siddiqui Primary Nita Siddiqui [place] [id number] Insurance:ANTHEMPolic VaughtDOB: [facility] [place] [facility] Number: [id number], [place] [id number] Repository 385[address]Pbk: (330) Date:5890-64-37AL [phone] () [id number], [place] [address]EL: 02/08/2018 Secondary NOT GIVENUNK [place] Insurance:SELF PAY [facility] Number: Effective Repository Date:2018-02-08 01/30/2018 PATRICIO Lopes Primary NITA VAUGHTDOB: [facility] VAUGHTDOB: Insurance:ANTHEM O [id number] University [id number] O POSPolicy Number: 04 [facility] [id number], [place] Date:Plan 338[address]Jwq: (000) Repository 9[address]Cvg: (000) Name:[facility] 000-0000 () 000-0000 () 12/01/2017 Nita Siddiqui Primary Nita [place] [id number] Insurance:ANTHEMPolic VaughtDOB: [facility] Number: [id number], [place] [id number] Repository 15[address]Jsa: (330) Date:9612-73-51WJ [phone] () [id number], [place] [address]XD: 12/01/2017 Secondary NOT GIVENUNK [place] Insurance:SELF PAY [facility] Number: Effective Repository Date:2017-12-01
== END ==
PROVIDERS: Family Provider Family Medicine; PCP Family Medicine; Visit Provider Family Medicine
DX: I10 Essential (primary) hypertension (principal)
CPT/HCPCS: 36415; 80048; 80061

== ENCOUNTER 2018-11-27 10:30 | Outpatient (RCR) | payer BC, SELFPAY | END 2018-11-30 23:59 | LOC: NS 10:30 | PROVIDERS: Family Provider Family Medicine; PCP Family Medicine; Visit Provider Family Medicine | DX: E66.9 Obesity, unspecified (principal); Z68.34 Body mass index [BMI] 34.0-34.9, adult; Z71.3 Dietary counseling and surveillance | CPT/HCPCS: 97802; 97803 ==

== ENCOUNTER 2018-12-25 10:30 | Outpatient (RCR) | payer BC, SELFPAY | END 2018-12-25 23:59 | LOC: NS 10:30 | PROVIDERS: Family Provider Family Medicine; PCP Family Medicine; Visit Provider Family Medicine | DX: E66.9 Obesity, unspecified (principal); Z68.34 Body mass index [BMI] 34.0-34.9, adult; Z71.3 Dietary counseling and surveillance | CPT/HCPCS: 97803 ==

== ENCOUNTER → 2020-01-21 08:47 | Outpatient (CLI) | payer BC, SELFPAY ==
[2020-01-21 10:16] LABS: Anion Gap 8 (5-15); BUN 15 mg/dL (7-18); BUN/Creat Ratio 20.7 RATIO (10-20); Calcium,Total 8.8 mg/dL (8.5-10.1); Chloride 104 mmol/L (98-107); Cholesterol 211 mg/dL (200); Creatinine, Serum 0.72 mg/dL (0.55-1.02); EST Glomerular Filtration Rate 90 mL/min (>60); Est Glom Filt Rate - Afr Amer 108 mL/min (>60); Glucose 91 mg/dL (74-106); High Density Lipoprotein 85 mg/dL; Potassium 3.9 mmol/L (3.5-5.1); Sodium Level 137 mmol/L (136-145); Thyroid Stim Hormone (TSH) 3.61 uIU/mL (0.358-3.74); Triglycerides 140 mg/dL; Very Low Density Lipoprotein 28 mg/dL (5-40)
== END ==
PROVIDERS: PCP Family Medicine; Referring Provider Family Medicine; Visit Provider Family Medicine
DX: E78.5 Hyperlipidemia, unspecified (principal); I10 Essential (primary) hypertension; E66.9 Obesity, unspecified
CPT/HCPCS: 36415; 80048; 80061; 84443

== ENCOUNTER → 2020-03-10 16:12 | Outpatient (CLI) | payer BC, SELFPAY ==
--- NOTE | 2020-03-10 16:15 | RAD_ITS ---
STUDY: X-RAY - LEFT WRIST REASON FOR EXAM: Female, 54 years old. left wrist pain x 3 weeks -- no injury TECHNIQUE: 3 view(s) of the wrist were obtained. COMPARISON: None. FINDINGS: Normal visualized distal radius and ulna. Normal radiocarpal articulation. Normal distal radioulnar articulation. Normal carpal bones. Margins disease of the scaphotrapezium trapezoid joint with cystic changes along the subchondral region of the distal scaphoid. Normal carpometacarpal articulation of the thumb. Normal second through fifth carpometacarpal articulations. Normal visualized metacarpal bones. The soft tissue structures are unremarkable. There is no demonstrated acute fracture. 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 Otherwise normal x-ray with no acute fracture or subluxation. Electronically Signed: Tata Dejesus MD at 1:01 EDT , Service support ,
== END ==
PROVIDERS: PCP Family Medicine; Referring Provider Family Medicine; Visit Provider Family Medicine
DX: S69.92XA Unspecified injury of left wrist, hand and finger(s), initial encounter (principal)
CPT/HCPCS: 73110

== ENCOUNTER 2020-04-24 10:07 | Observation (INO) | payer BC, SELFPAY ==
[2020-04-24] VITALS (8 sets, daily range): BP systolic 124–156; BP diastolic 76–96; PULSE 81–104; RESP 13–19; TEMP 36.2–36.8; O2SAT 98–100; BMI 34.7; BMI 34.2; BMI 34.3
--- NOTE | 2020-04-24 10:21 | EKG12_ITS ---
Test Reason : PALPS Blood Pressure : / mmHG Vent. Rate : 092 BPM Atrial Rate : 092 BPM P-R Int : 130 ms QRS Dur : 100 ms QT Int : 384 ms P-R-T Axes : 035 -15 066 degrees QTc Int : 474 ms Normal sinus rhythm Possible Left atrial enlargement Left ventricular hypertrophy Abnormal ECG Confirmed by SYDNEE HAMMER, LENY ([id number]), advertising editor DON SILVA ([id number]) on 04/29/2020 11:16:09 AM Referred By: DC Confirmed By:LENY RANDHAWA MD
--- NOTE | 2020-04-24 10:25 | RAD_ITS ---
STUDY: X-RAY CHEST REASON FOR EXAM: Female, 54 years old. CHEST PAIN. TECHNIQUE: Single AP portable view of the chest. COMPARISON: None. FINDINGS: Likely chronic elevation of the right hemidiaphragm. Surgical clips noted in the right axillary The lungs are clear and expanded. There is no demonstrated pleural abnormality. Normal size heart. Normal mediastinum and renu. Normal visualized pulmonary arteries. Normal visualized aortic arch and descending thoracic aorta. Normal visualized thoracic spine. Normal visualized ribs, clavicles, and shoulders. There is no demonstrated abnormality of the visualized soft tissue structures of the upper abdomen. RAD/Chest 1 View (Portable) IMPRESSION: No acute pulmonary process Electronically Signed: Cam Zavala MD at 10:36 EDT , Service support ,
[2020-04-24] MEDS: 0.9% Normal Saline 1,000 ML 150 ML IV (10:46)
[2020-04-24] MEDS: Aspirin 81 MG TAB.CHEW 324 MG PO (10:47)
--- NOTE | 2020-04-24 11:04 | ED.VIS.GEN ---
History of Present Illness Chief Complaint: Palpitations Informant: Patient Onset: Weeks Current Severity: Mild Maximum Severity: Mild Narrative: Patient presents complaining of weeks worth of patients associated with a sense of weakness and occasional shortness of breath Is primarily when she is outdoors working around her home, does not occur when she is indoors, she has no history of NM PE DVT no exposures to coronavirus no fever or cough, she indicates her heart will just start racing she has no history of A. fib or flutter or V. tach, her bowel and bladder habits are normal, She saw her physician today and she was sent to the emergency room for evaluation, she indicates she had a cardiac stress test in 2018 that was unremarkable, she has a distant history for right breast mastectomy followed by chemotherapy and radiation with no recurrence of her cancer with follow-up studies sitting in the room she has no complaints Past Medical History - Allergies and Home Meds Allergies/Adverse Reactions: Allergies Iodinated Contrast Media [CONTRASTS] Allergy (Verified 04/24/20 10:48) swelling to head and neck Primary Care Physician: Farhan Moreira MD [Primary Care Provider] - Past Medical History: - - Hypertension right breast cancer with mastectomy Smoking Status: Former smoker Review of Systems General: Denies: Chills, Fever, Sweats Eyes: Denies: Visual changes - bilaterally, Diplopia ENT: Denies: Rhinorrhea, Sore throat Cardiovascular: Reports: Palpitations. Denies: Chest pain Respiratory: Reports: Dyspnea. Denies: Cough, Dyspnea on exertion Gastrointestinal: Denies: Abdominal pain, Nausea, Vomiting, Diarrhea, Melena, Hematochezia Genitourinary: Denies: Dysuria, Hematuria, Frequency Musculoskeletal: Denies: Back pain, Extremity Pain Skin: Denies: Rash, Wounds Neurological: Denies: Headache, Weakness, Numbness Physical Exam Vital Signs/Narrative: Vital Signs Temp Pulse Resp BP Pulse Ox 04/24/20 10:41 87 13 98 04/24/20 10:08 97.1 F L 104 H 18 156/96 H 98 General: Well nourished, Well developed, No Acute Distress Head: Normocephalic, Atraumatic Eyes: Perrl, EOMI ENT: Moist mucous membranes, No rhinorrhea Neck: Supple, Nontender Cardiovascular: Regular rate, Regular rhythm, No murmurs Respiratory: No distress, CTA bilaterally, Chest nontender Abdomen: Soft, Nontender, Nondistended, Normal bowel sounds Back: Nontender, Normal Inspection Extremities: Nontender, No edema Skin: Normal color, No rash Neurological: Alert, Oriented x3, Cranial nerves II-XII grossly intact, Normal Strength, Normal Sensation Psychological: Normal affect, Normal Mood Diagnostic/Tx/Re-eval - Medical Decision Making Given all of the above the differential is rather extensive, the patient's EKG shows a sinus rhythm rate 92 no acute injury pattern appreciated, screening labs ED evaluation She is ED screening evaluation d-dimer chest x-ray are all generally unremarkable to those reports, given her complaints given her visit to her PCP this morning who recommended admission I asked the hospitalist to see the patient for admission for further management Admit stable Impression final Chest pain palpitations fatigue ED Disposition - Plan for ED Patient: Diagnosis: Chest pain Referrals: Farhan Moreira MD [Primary Care Provider] -
[2020-04-24 11:06] LABS: Absolute Lymphocyte Count 1.46 X10^3/uL (0.83-4.51); Absolute Neutrophil Count 2.9 X10^3/uL (2.0-7.7); Basophil# 0.03 X10^3/uL; Basophil% 0.6 % (0-1); Hemoglobin 13.6 g/dL (12.0-15.0); Lymphocyte # 1.46 X10^3/ul (4.0); Lymphocyte % 29.7 % (19-41); Mean Corp Hgb Conc 33.2 g/dL (32-36); Mean Corpuscular Hgb 32.7 pg (27.0-32.0); Mean Corpuscular Volume 98.6 fL (81-99); Mean Platelet Vol. 10.5 fl (6.2-12.0); Monocyte# 0.41 X10^3/uL; Monocyte% 8.4 % (0-10); NRBC Flagged by Analyzer 0 % (0-5); Neutrophil % 59.1 % (47-70); Platelet Count 247 K/mm3 (150-450); RBC Distribution Width CV 13.4 % (11.6-14.6); RBC Distribution Width SD 48.3 fl (35.1-43.9); Red Blood Count 4.16 M/mm3 (4.2-5.4); White Blood Count 4.9 K/mm3 (4.4-11.0)
[2020-04-24 11:17] LABS: D-Dimer Quantitative (DVT/PE) 0.38 FEU/ug/m (0.27-0.49)
[2020-04-24 11:24] LABS: Anion Gap 7 (5-15); BUN 15 mg/dL (7-18); BUN/Creat Ratio 19.2 RATIO (10-20); Calcium,Total 9.8 mg/dL (8.5-10.1); Chloride 104 mmol/L (98-107); Creatinine, Serum 0.78 mg/dL (0.55-1.02); EST Glomerular Filtration Rate 82 mL/min (>60); Est Glom Filt Rate - Afr Amer 99 mL/min (>60); Estimated Creatinine Clearance 78.08 ml/min; Glucose 93 mg/dL (74-106); Potassium 3.8 mmol/L (3.5-5.1); Sodium Level 137 mmol/L (136-145)
--- NOTE | 2020-04-24 13:27 | HP.PCM_ITS ---
History of Present Illness Date of Admission: 04/24/20 Chief Complaint: Palpitations The patient is a 54 year old F with PMH as below who presents with palpitations, lightheadedness, dizziness, and chest tightness going on for about a week now. She states that it occurs mostly with activity though on occasion she gets it at rest. It always happens with the sensation of fluttering in her chest. She denies any direct chest pain, no shortness of breath or edema. In the ER she had an initial troponin which was negative and EKG which showed normal sinus rhythm however she had presented to her PCPs office today because of some wrist pain and she was found to be tachycardic. She had a previous stress test in 2018 which was unremarkable. Past Medical History Allergies Iodinated Contrast Media [CONTRASTS] Allergy (Verified 04/24/20 10:48) swelling to head and neck Home Medications: Ambulatory Orders Medication Instructions Recorded Allopurinol 100 mg PO DAILY 04/24/20 Atorvastatin Calcium 10 mg PO DAILY 04/24/20 Lisinopril 5 mg PO DAILY 04/24/20 Valacyclovir HCl [Valacyclovir] 1,000 mg PO DAILY 04/24/20 Venlafaxine HCl [Effexor] 25 mg PO DAILY 04/24/20 Surgical History: hysterectomy, mastectomy, total knee arthroplasty Smoking Status: Former smoker Tobacco Use: Cigarettes Alcohol: Occasional Drugs: None - *Family History Maternal History Items: Cancer, Diabetes, Renal Disease Paternal History Items: Heart Disease, - - Arrhythmia Review of Systems Constitutional: Denies: Chills, Fever, Weight Change HEENT: Denies: Head Aches, Sinus Congestion, Sinus Drainage Cardiovascular: Reports: Chest Tightness, Light Headedness, Palpitations. Denies: Chest Pain Respiratory: Denies: Cough, Shortness of breath at rest, Sputum production Gastrointestinal: Denies: Abdominal Pain, Nausea, Vomiting Genitourinary: Denies: Dysuria Musculoskeletal: Denies: Joint Pain, Joint Tenderness Skin: Denies: Rash, Wounds Neurological: Denies: Numbness, Tingling, Focal weakness Psychiatric: Denies: Anxiety, Depression Hematologic/ Lymphatic: Denies: Easy Bruising, Easy Bleeding VTE Information - Inpt Only VTE Present on Admission: No - Physical Exam Vitals/I&O's: Vital Signs Temp Pulse Resp BP Pulse Ox 98.2 F 88 19 H 126/78 H 100 04/24/20 12:40 04/24/20 12:40 04/24/20 12:40 04/24/20 12:40 04/24/20 12:40 Oxygen Delivery Method Room Air Weight: 215 lb Body Mass Index (BMI) 34.7 General: Alert, Oriented x3, Cooperative, No apparent distress HEENT: Atraumatic, PERRLA, EOMI, Normocephalic Oral: Moist Mucosa Neck: Supple, No JVD Lungs: Clear to auscultation, Normal air movement, No rhonchi, No wheeze, No rales Cardiovascular: Regular rate, Regular Rhythm, Normal S1, Normal S2, No murmurs Abdomen: Soft, Non Tender, Non-Distended, No Hepato-splenomegaly Extremities: No edema, Capillary Refill Less than 3 Seconds Skin: No rashes, No breakdown Neurological: Neuro grossly intact, Sensory exam intact to light touch and pain Psych/Mental Status: Normal Affect, Appropriate Laboratory Results 04/24/20 10:47: WBC 4.9, RBC 4.16 L, Hgb 13.6, Hct 41.0, MCV 98.6, MCH 32.7 H, MCHC 33.2, RDW Std Deviation 48.3 H, RDW Coeff of Anthony 13.4, Plt Count 247, MPV 10.5, Immature Gran % (Auto) 0.200, Neut % (Auto) 59.1, Lymph % (Auto) 29.7, [place] % (Auto) 8.4, Eos % (Auto) 2.0, Baso % (Auto) 0.6, Absolute Neuts (auto) 2.9, Absolute Lymphs (auto) 1.46, Nucleated RBC % 0 04/24/20 10:47: Sodium 137, Potassium 3.8, Chloride 104, Carbon Dioxide 26.0, Anion Gap 7, BUN 15, Creatinine 0.78, Estim Creat Clear Calc 78.08, Est GFR (MDRD) Af Amer 99, Est GFR (MDRD) Non-Af 82, BUN/Creatinine Ratio 19.2, Glucose 93, Calcium 9.8, Troponin I < 0.015 04/24/20 10:47: D-Dimer Quant (PE/DVT) 0.38 Current Medications Sodium Chloride () 1,000 mls @ 150 mls/hr IV .[id number] [facility] Last Admin: 04/24/20 10:46 Dose: 150 mls/hr Documented by: Assessment/Plan 1. Palpitations with chest tightness and lightheadedness/hyperlipidemia/hypertension -EKG on admission is normal sinus rhythm -Initial troponin is normal, will serialize -We will monitor on telemetry and obtain an exercise stress echo in the morning -Continue with her lisinopril and her Lipitor 2. Depression/anxiety -Stable -Continue with Effexor 3. Gout -Stable -Continue with allopurinol DVT: Low risk OBSV E&M: [id number] Initial observation care L2
--- NOTE | 2020-04-24 13:48 | ECHOCS_ITS ---
Reason For Study: Palpitations Procedure This was a 2D Doppler, Color Flow transthoracic echocardiogram. The study was technically difficult. Contrast injection was performed. Exam performed in department. Left Ventricle Normal LV size. Left ventricular systolic function is normal. The estimated ejection fraction is 60 %. Transmitral doppler flow suggestive of impaired relaxation of left ventricle. No regional wall motion abnormalities noted. Right Ventricle Normal RV size. Normal systolic function. Atria The left atrium is mildly enlarged. Normal right atrium. No doppler evidence for ASD. Mitral Valve There is no mitral annular calcification. Mild mitral valve prolapse, posterior leaflet. Trivial mitral valve insufficiency. Tricuspid Valve Normal tricuspid valve. Trivial tricuspid valve insufficiency. Right ventricular systolic pressure estimated to be 29 mmHg. Aortic Valve Trisinus/trileaflet aortic valve. Normal aortic valve. Pulmonic Valve The pulmonic valve is not well visualized. Trivial pulmonic valve insufficiency. Great Vessels The aortic root is not well visualized. Pericardium/Pleural No pericardial effusion. Medication Diluted definity 2.5ml given slow IV push to enhance endocardial definition. MMode/2D Measurements & Calculations LVIDd: 4.4 cm IVSd: 1.5 cm LA dimension: 3.9 cm LVIDs: 3.2 cm LVPWd: 1.3 cm FS: 26.6 % LAV(MOD-bp): 60.6 ml LA A4 area: 21.4 cm2 RA A4 area: 12.2 cm2 LAV(MOD-bp) Indexed: 29.4 ml/m2 LAV(MOD-sp2): 50.1 ml LAV(MOD-sp4): 65.7 ml Time Measurements MV dec time: 0.23 sec Doppler Measurements & Calculations MV E max jaiden: 71.7 cm/sec Lat Peak E' Jaiden: 6.5 cm/sec Med Peak E' Jaiden: 6.8 cm/sec MV A max jaiden: 89.8 cm/sec E/E' lat: 11.0 E/E' med: 10.5 MV E/A: 0.80 MV V2 max: 94.4 cm/sec MV P1/2t max jaiden: 84.6 cm/sec Ao V2 max: 119.1 cm/sec MV max P.6 mmHg MV P1/2t: 63.3 msec Ao max P.7 mmHg MV V2 mean: 56.1 cm/sec MV dec slope: 391.4 cm/sec2 MV mean P.5 mmHg MV V2 VTI: 20.3 cm MVA(P1/2t): 3.5 cm2 LV V1 max: 85.7 cm/sec PA V2 max: 75.1 cm/sec TR max jaiden: 252.8 cm/sec LV V1 max P.9 mmHg TR max P.6 mmHg Interpretation Summary The study was technically difficult. Contrast injection was performed. Left ventricular systolic function is normal. The estimated ejection fraction is 60 %. The left atrium is mildly enlarged. Mild mitral valve prolapse, posterior leaflet Trivial mitral valve insufficiency. Trivial tricuspid valve insufficiency. Trivial pulmonic valve insufficiency. Right ventricular systolic pressure estimated to be 29 mmHg. Transmitral doppler flow suggestive of impaired relaxation of left ventricle Ordering Physician: Herminio Rodriguez Referring Physician: Farhan Moreira Performed By: Damien Reynolds RCS
--- NOTE | 2020-04-24 13:48 | STEWCON_ITS ---
Reason For Study: PALPITATIONS Stress Results Protocol: Alexis Protocol WITH DEFINITY Maximum Predicted HR: 167 bpm Target HR: 142 bpm % Maximum Predicted HR: 93 % DurationHeart Rate Stage (mm:ss) (bpm) BP Comment BASELINE 78 132/883.4CC DEFINITY FOR ENTIRE TEST STAGE 1 3:00 114 128/72LEGS FEEL HEAVY STAGE 2 3:00 131 140/62RT SIDE CHEST DISCOMFORT, TINGLING SENSATION STAGE 3 3:00 155 142/80CHEST DISCOMFORT SAME, SOB NOTED RECOVERY 104 108/70FEELING BETTER Stress Duration: 9:00 mm:ss Maximum Stress HR: 155 bpm Baseline Echocardiogram Findings Stress Echo Wall motion Data Resting WM Intermediate WM Stress WM Resting Wall Motion Wall Motion Stress All segments Normal. All segments Hyperkinetic. Ejection Fraction 55 %. Ejection Fraction 65 %. Stress Results Heart rate response: Appropriate Blood pressure response: Normal resting BP-appropriate response Arrhythmias: Isolated PVC during exercise and recovery Functional capacity: Good Stopped secondary to: Dyspnea. EKG Data The baseline ECG displays normal sinus rhythm. Peak exercise ECG: No obvious ECG changes. Symptoms with Stress The patient noted right-sided chest discomfort/tingling sensation, legs feeling heavy, and size with resolution of symptoms during recovery. Interpretation Summary 1 Contrast injection formed 2 Negative (adequate) stress echocardiogram 3 Negative (adequate) ECG exercise tolerance test 4 Isolated PVC during exercise and recovery Ordering Physician: Herminio Rodriguez Performed By: Damien Reynolds RCS
[2020-04-25 00:10] VITALS: BP 133/87; PULSE 89; RESP 16; TEMP 36.7; O2SAT 97
[2020-04-25 03:01] VITALS: PULSE 88
--- NOTE | 2020-04-25 04:18 | EKG12_ITS ---
Test Reason : AM EKG Blood Pressure : / mmHG Vent. Rate : 084 BPM Atrial Rate : 084 BPM P-R Int : 146 ms QRS Dur : 100 ms QT Int : 432 ms P-R-T Axes : 048 -16 058 degrees QTc Int : 510 ms Normal sinus rhythm Prolonged QT Abnormal ECG When compared with ECG of 24-APR-2020 14:18, MANUAL COMPARISON REQUIRED, DATA IS UNCONFIRMED Confirmed by WILLIAM HONEYCUTT ([id number]), purchasing expeditor SORAYA SCHULER ([id number]) on 05/01/2020 1:27:54 PM Referred By: ED Confirmed By:WILLIAM HONEYCUTT
[2020-04-25 05:40] LABS: Absolute Lymphocyte Count 1.57 X10^3/uL (0.83-4.51); Absolute Neutrophil Count 2.7 X10^3/uL (2.0-7.7); Basophil# 0.03 X10^3/uL; Basophil% 0.6 % (0-1); Eosinophil# 0.15 X10^3/uL; Eosinophils% 3.1 % (0-5); Hematocrit 38.9 % (37-47); Hemoglobin 12.7 g/dL (12.0-15.0); Lymphocyte # 1.57 X10^3/ul (4.0); Lymphocyte % 32.2 % (19-41); Mean Corp Hgb Conc 32.6 g/dL (32-36); Mean Corpuscular Hgb 32.9 pg (27.0-32.0); Mean Corpuscular Volume 100.8 fL (81-99); Mean Platelet Vol. 10.1 fl (6.2-12.0); Monocyte# 0.42 X10^3/uL; Monocyte% 8.6 % (0-10); NRBC Flagged by Analyzer 0 % (0-5); Neutrophil # 2.69 X10^3/uL (2.7-7.7); Neutrophil % 55.3 % (47-70); Platelet Count 221 K/mm3 (150-450); RBC Distribution Width CV 13.7 % (11.6-14.6); RBC Distribution Width SD 50.2 fl (35.1-43.9); Red Blood Count 3.86 M/mm3 (4.2-5.4); White Blood Count 4.9 K/mm3 (4.4-11.0)
--- NOTE | 2020-04-25 05:55 | EKG12_ITS ---
Test Reason : CP ADMISSION Blood Pressure : / mmHG Vent. Rate : 081 BPM Atrial Rate : 081 BPM P-R Int : 146 ms QRS Dur : 100 ms QT Int : 418 ms P-R-T Axes : 039 -17 059 degrees QTc Int : 485 ms Normal sinus rhythm Prolonged QT Abnormal ECG When compared with ECG of 24-APR-2020 10:17, MANUAL COMPARISON REQUIRED, DATA IS UNCONFIRMED Confirmed by WILLIAM HONEYCUTT ([id number]), desk editor DON SILVA ([id number]) on 05/01/2020 12:07:02 PM Referred By: ALBINA Confirmed By:WILLIAM HONEYCUTT
[2020-04-25 05:58] LABS: Anion Gap 6 (5-15); BUN 15 mg/dL (7-18); BUN/Creat Ratio 20.7 RATIO (10-20); Calcium,Total 8.9 mg/dL (8.5-10.1); Chloride 109 mmol/L (98-107); Creatinine, Serum 0.72 mg/dL (0.55-1.02); EST Glomerular Filtration Rate 89 mL/min (>60); Est Glom Filt Rate - Afr Amer 108 mL/min (>60); Estimated Creatinine Clearance 84.59 ml/min; Glucose 105 mg/dL (74-106); Potassium 4.2 mmol/L (3.5-5.1); Sodium Level 141 mmol/L (136-145)
[2020-04-25 06:10] VITALS: BP 123/84; PULSE 82; RESP 16; TEMP 36.6; O2SAT 95
[2020-04-25] MEDS: Lisinopril 5 MG Tablet PO (06:29)
[2020-04-25] MEDS: 0.9% Saline Lock 10 ML Syringe IV (06:30)
[2020-04-25 06:44] VITALS: PULSE 93
[2020-04-25] MEDS: Allopurinol 100 MG Tablet PO (09:30)
[2020-04-25] MEDS: Venlafaxine HCl 25 MG Tablet PO (09:30)
[2020-04-25 09:32] VITALS: BP 116/75; PULSE 91; RESP 16; TEMP 36.8; O2SAT 96
--- NOTE | 2020-04-25 12:57 | DCINST_ITS ---
You will use the following diet at home:: Cardiac Your food should be the consistency of: Regular Your liquids should be the consistency of: Regular/Thin Discharge Activity: Return to Normal Activity Call your doctor if you observe: Fever of 101 or Higher, Shortness of breath, Dizziness, Fainting spells, Swelling in the ankles, Chest pain, Increased palpitations (irregular heartbeat) Additional Instructions: She will be set up with a 48 hour holter monitor prior to DC Allergies/Adverse Reactions: Allergies Iodinated Contrast Media [CONTRASTS] Allergy (Verified 04/24/20 10:48) swelling to head and neck Medications to take at Discharge Allopurinol 100 mg PO DAILY 04/24/20 Atorvastatin Calcium 10 mg PO DAILY 04/24/20 Lisinopril 5 mg PO DAILY 04/24/20 Valacyclovir HCl [Valacyclovir] 1,000 mg PO DAILY 04/24/20 Venlafaxine HCl [Effexor] 25 mg PO DAILY 04/24/20 Orders to be completed after discharge: Cardiac Holter Monitor, Set-Up [[facility]] Location: None Selected Primary Care Physician: Farhan Moreira MD [Primary Care Provider] - Please follow up with your Primary Care Physician in: 3-5 days Test Results: Test results from this visit will be discussed in further detail at your follow- up appointment, if applicable.
--- NOTE | 2020-04-25 13:23 | DS.PCM_ITS ---
Discharge Date and Diagnosis Date of Admission: 04/24/20 Date of Discharge: 04/25/20 Hospital Course and Treatment Imaging Results: CXR: IMPRESSION: No acute pulmonary process Echo: Interpretation Summary The study was technically difficult. Contrast injection was performed. Left ventricular systolic function is normal. The estimated ejection fraction is 60 %. The left atrium is mildly enlarged. Mild mitral valve prolapse, posterior leaflet Trivial mitral valve insufficiency. Trivial tricuspid valve insufficiency. Trivial pulmonic valve insufficiency. Right ventricular systolic pressure estimated to be 29 mmHg. Transmitral doppler flow suggestive of impaired relaxation of left ventricle Stress Echo: Stress Results Heart rate response: Appropriate Blood pressure response: Normal resting BP-appropriate response Arrhythmias: Isolated PVC during exercise and recovery Functional capacity: Good Stopped secondary to: Dyspnea. EKG Data The baseline ECG displays normal sinus rhythm. Peak exercise ECG: No obvious ECG changes. Symptoms with Stress The patient noted right-sided chest discomfort/tingling sensation, legs feeling heavy, and size with resolution of symptoms during recovery. Interpretation Summary 1 Contrast injection formed 2 Negative (adequate) stress echocardiogram 3 Negative (adequate) ECG exercise tolerance test 4 Isolated PVC during exercise and recovery Consults: None Operations: None Procedures: 2-D Echocardiogram, Stress test Summary of Care Provided: Per HPI: The patient is a 54 year old F with PMH as below who presents with palpitations, lightheadedness, dizziness, and chest tightness going on for about a week now. She states that it occurs mostly with activity though on occasion she gets it at rest. It always happens with the sensation of fluttering in her chest. She denies any direct chest pain, no shortness of breath or edema. In the ER she had an initial troponin which was negative and EKG which showed normal sinus rhythm however she had presented to her PCPs office today because of some wrist pain and she was found to be tachycardic. She had a previous stress test in 2018 which was unremarkable. Hospital Course: 1. Palpitations with chest tightness and lightheadedness/[id number]/[id number]oy-old female who was having intermittent palpitations and associated chest tightness presented to the hospital for evaluation. Troponins were negative x3 and her overnight telemetry was unremarkable. She underwent an exercise stress echo today, and she had mild chest tightness and other similar but milder symptoms. The stress test was negative for ischemia and did not elicit any arrhythmia. Also her echo was unremarkable except for mild mitral valve prolapse. She states she is feeling well and would like to go home. We will have her be set up with a Holter monitor for 48 hours on discharge, if the Holter monitor is negative then she may need a 30-day event monitor for further investigation. I discussed her plan for discharge and she expressed understanding of the risks and benefits of discharge and would like to go home today. 2. Her other medical diagnoses were evaluated and her home medications were continued where appropriate - Physical Exam Vitals/I&O's: Vital Signs Temp Pulse Resp BP Pulse Ox 98.2 F 91 16 116/75 96 04/25/20 09:32 04/25/20 09:32 04/25/20 09:32 04/25/20 09:32 04/25/20 09:32 Oxygen Delivery Method Room Air Weight: 212 lb 8.41 oz Body Mass Index (BMI) 34.2 Intake and Output for Last 24 Hours 04/23/20 04/24/20 04/25/20 23:59 23:59 23:59 Intake Total 1402.5 / 1402.5 400 / 400 Balance 1402.5 / 1402.5 400 / 400 General: Alert, Oriented x3, Cooperative, No apparent distress HEENT: Atraumatic, PERRLA, EOMI, Normocephalic Oral: Moist Mucosa Neck: Supple, No JVD Lungs: Clear to auscultation, Normal air movement, No rhonchi, No wheeze, No rales Cardiovascular: Regular rate, Regular Rhythm, Normal S1, Normal S2, No murmurs Abdomen: Soft, Non Tender, Non-Distended, No Hepato-splenomegaly Extremities: No edema, Capillary Refill Less than 3 Seconds Skin: No rashes, No breakdown Neurological: Neuro grossly intact, Sensory exam intact to light touch and pain Psych/Mental Status: Normal Affect, Appropriate Laboratory Results 04/24/20 14:36: Troponin I < 0.015 04/24/20 17:35: Troponin I < 0.015 04/25/20 05:30: WBC 4.9, RBC 3.86 L, Hgb 12.7, Hct 38.9, MCV 100.8 H, MCH 32.9 H , MCHC 32.6, RDW Std Deviation 50.2 H, RDW Coeff of Anthony 13.7, Plt Count 221, MPV 10.1, Immature Gran % (Auto) 0.200, Neut % (Auto) 55.3, Lymph % (Auto) 32.2, [place] % (Auto) 8.6, Eos % (Auto) 3.1, Baso % (Auto) 0.6, Absolute Neuts (auto) 2.7, Absolute Lymphs (auto) 1.57, Nucleated RBC % 0 04/25/20 05:30: Sodium 141, Potassium 4.2, Chloride 109 H, Carbon Dioxide 26.0, Anion Gap 6, BUN 15, Creatinine 0.72, Estim Creat Clear Calc 84.59, Est GFR (MDRD) Af Amer 108, Est GFR (MDRD) Non-Af 89, BUN/Creatinine Ratio 20.7 H, Glucose 105, Calcium 8.9 Current Medications Acetaminophen (Tylenol) 650 mg PO Q6H PRN PRN PRN Reason: Pain Score 1-10/Temp > 100.7 F [facility] [place] [facility] Admin: 04/25/20 09:30 Dose: 100 mg Documented by: Atorvastatin Calcium (Lipitor) 10 mg PO DAILY@2200 [facility] Sodium Chloride () 500 mls @ 15 mls/hr IV PRN PRN PRN Reason: Blood Transfusion Sodium Chloride () 250 mls @ 15 mls/hr IV .[id number] PRN PRN Reason: Saline Flush Sodium Chloride () 250 mls @ 15 mls/hr IV .[id number] PRN PRN Reason: Additional IVPB Infusion Lisinopril (Zestril) 5 mg PO DAILY [facility] Last Admin: 04/25/20 06:29 Dose: 5 mg Documented by: Melatonin (Melatonin) 3 mg PO QHS PRN PRN PRN Reason: INSOMNIA Nitroglycerin (Nitrostat) 0.4 mg SUBLINGUAL Q5M PRN PRN Reason: CARDIAC/CHEST PAIN Ondansetron HCl (Zofran) 4 mg IV Q8H PRN PRN PRN Reason: NAUSEA/VOMITING Sodium Chloride () 10 - 40 ml IV UD PRN PRN Reason: SALINE FLUSH Last Admin: 04/25/20 06:30 Dose: 10 ml Documented by: Venlafaxine HCl (Effexor) 25 mg PO DAILY [facility] Last Admin: 04/25/20 09:30 Dose: 25 mg Documented by: Discharge Activity: Return to Normal Activity Call your doctor if you observe: Fever of 101 or Higher, Shortness of breath, Dizziness, Fainting spells, Swelling in the ankles, Chest pain, Increased palpitations (irregular heartbeat) Home Medications: Medications to take at Discharge Allopurinol 100 mg PO DAILY 04/24/20 Atorvastatin Calcium 10 mg PO DAILY 04/24/20 Lisinopril 5 mg PO DAILY 04/24/20 Valacyclovir HCl [Valacyclovir] 1,000 mg PO DAILY 04/24/20 Venlafaxine HCl [Effexor] 25 mg PO DAILY 04/24/20 Other Amb Orders: Cardiac Holter Monitor, Set-Up [[facility]] Location: None Selected Primary Care Physician: Farhan Moreira MD [Primary Care Provider] - Please follow up with your Primary Care Physician in: 3-5 days Disposition: Home Minutes spent on discharge:: 35 Patient Condition:: Stable Medical Necessity - Tobacco Use Smoking Status: Former smoker Tobacco Use: Cigarettes Meaningful Use Info Meaningful Use Diagnoses (Choose all that apply): None applicable OBSV E&M: 37224 Observation care discharge
== END 2020-04-25 12:59 | disposition home or self-care (01) ==
LOC: ED 11:52 → PCU 12:44
PROVIDERS: Admitting Provider Family Medicine; Emergency Provider Emergency Medicine; PCP Family Medicine; Visit Provider Family Medicine
DX: R00.2 Palpitations (principal); R07.89 Other chest pain; R42 Dizziness and giddiness; E78.5 Hyperlipidemia, unspecified; Z79.899 Other long term (current) drug therapy; I08.1 Rheumatic disorders of both mitral and tricuspid valves; Z87.891 Personal history of nicotine dependence; M10.9 Gout, unspecified; F41.9 Anxiety disorder, unspecified; F32.9 Major depressive disorder, single episode, unspecified
CPT/HCPCS: 36415; 71045; 80048; 84484; 85025; 85379; 93005; 93017; 93306; 93350; 96360; 96361; 99218; 99285; J7030; Q9957; A4216; C8928; C8929; G0378

== ENCOUNTER → 2020-07-09 15:21 | Outpatient (CLI) | payer BC, SELFPAY ==
[2020-04-24 14:00] VITALS: BMI 34.2
[2020-07-09 19:16] LABS: Anion Gap 6 (5-15); BUN 21 mg/dL (7-18); Calcium,Total 9.4 mg/dL (8.5-10.1); Chloride 108 mmol/L (98-107); Cholesterol 229 mg/dL (200); Creatinine, Serum 0.68 mg/dL (0.55-1.02); EST Glomerular Filtration Rate 96 mL/min (>60); Est Glom Filt Rate - Afr Amer 117 mL/min (>60); Free T3 3.1 pg/mL (2.18-3.98); Glucose 81 mg/dL (74-106); High Density Lipoprotein 77 mg/dL; Potassium 3.7 mmol/L (3.5-5.1); Sodium Level 139 mmol/L (136-145); Thyroid Stim Hormone (TSH) 1.77 uIU/mL (0.358-3.74); Triglycerides 149 mg/dL; Very Low Density Lipoprotein 30 mg/dL (5-40)
== END ==
PROVIDERS: PCP Family Medicine; Referring Provider Family Medicine; Visit Provider Family Medicine
DX: I49.9 Cardiac arrhythmia, unspecified (principal); I10 Essential (primary) hypertension
CPT/HCPCS: 36415; 80048; 80061; 84443; 84481

== ENCOUNTER → 2020-10-01 10:57 | Outpatient (CLI) | payer BC, SELFPAY ==
[2020-07-30 13:08] VITALS: BMI 34.8
--- NOTE | 2020-10-01 11:00 | RAD_ITS ---
STUDY: X-RAY - LEFT KNEE REASON FOR EXAM: Chronic left knee pain, no specific injury. TECHNIQUE: 3 view(s) of the knee. COMPARISON: None. FINDINGS: Normal visualized distal femur. Normal visualized proximal tibia and fibula. Normal proximal tibiofibular articulation. There are small marginal osteophytes and mild joint space narrowing of the medial femorotibial compartment. Normal lateral femorotibial compartment. Normal patellofemoral articulation. The soft tissue structures are unremarkable. RAD/Knee 3 Views IMPRESSION: Mild arthrosis of the medial femorotibial compartment. Electronically Signed: Elfego Monteiro MD at 15:21 EST Tel , Service support ,
--- NOTE | 2020-10-01 11:00 | RAD_ITS ---
STUDY: X-RAY - RIGHT KNEE REASON FOR EXAM: Chronic right knee pain, no specific injury. TECHNIQUE: 3 view(s) of the knee. COMPARISON: None. FINDINGS: Normal visualized distal femur. Normal visualized proximal tibia and fibula. Normal proximal tibiofibular articulation. There is moderate joint space narrowing of the medial femorotibial compartment. Normal lateral femorotibial compartment. Normal patellofemoral articulation. There is a small joint effusion. RAD/Knee 3 Views IMPRESSION: Arthrosis of the medial femorotibial compartment. Small joint effusion. Electronically Signed: Elfego Monteiro MD at 14:02 EST Tel , Service support ,
== END ==
LOC: MTRAD 10:58
PROVIDERS: PCP Family Medicine; Referring Provider Family Medicine; Visit Provider Family Medicine
DX: M25.561 Pain in right knee (principal); S89.92XA Unspecified injury of left lower leg, initial encounter
CPT/HCPCS: 73562

== ENCOUNTER → 2021-02-23 | Outpatient (CLI) | payer BC, SELFPAY ==
[2020-07-30 13:08] VITALS: BMI 34.8
== END | disposition home or self-care (01) ==
LOC: LABSPEC 14:05
PROVIDERS: PCP Family Medicine
DX: Z01.818 Encounter for other preprocedural examination (principal)
CPT/HCPCS: 87635; C9803; U0002

== ENCOUNTER → 2021-04-29 11:27 | Outpatient (CLI) | payer BC, SELFPAY ==
[2020-07-30 13:08] VITALS: BMI 34.8
[2021-04-29 15:41] LABS: Anion Gap 6 (5-15); BUN 14 mg/dL (7-18); BUN/Creat Ratio 18.7 RATIO (10-20); Calcium,Total 9.2 mg/dL (8.5-10.1); Chloride 105 mmol/L (98-107); Cholesterol 208 mg/dL (200); Creatinine, Serum 0.75 mg/dL (0.55-1.02); EST Glomerular Filtration Rate 86 mL/min (>60); Est Glom Filt Rate - Afr Amer 104 mL/min (>60); Glucose 80 mg/dL (74-106); High Density Lipoprotein 80 mg/dL; Sodium Level 138 mmol/L (136-145); Triglycerides 104 mg/dL; Uric Acid 6.4 mg/dL (2.6-6.0); Very Low Density Lipoprotein 21 mg/dL (5-40)
== END ==
PROVIDERS: PCP Family Medicine; Visit Provider Family Medicine
DX: I10 Essential (primary) hypertension (principal); M10.9 Gout, unspecified
CPT/HCPCS: 36415; 80048; 80061; 84550

== ENCOUNTER 2021-11-05 15:44 | Outpatient (CLI) | payer BC, SELFPAY | END 2021-11-05 23:59 | disposition short-term general hospital (02) | PROVIDERS: PCP Family Medicine; Visit Provider Family Medicine | DX: U07.1 COVID-19 (principal) | CPT/HCPCS: 87635; U0003; U0005 ==

== ENCOUNTER 2022-02-11 10:14 | Outpatient (CLI) | payer BC, SELFPAY ==
--- NOTE | 2022-02-11 10:19 | RAD_ITS ---
STUDY: X-RAY - LEFT ANKLE REASON FOR EXAM: Female, 56 years old. PAIN IN ACHILLES TECHNIQUE: 3 view(s) of the ankle. COMPARISON: None. FINDINGS: Normal visualized distal tibia and fibula. Normal medial and lateral malleoli. Normal tibiotalar articulation and ankle mortise. Normal visualized talus and calcaneus. The visualized subtalar, talonavicular, calcaneocuboid and tarsal articulations are normal. There is a thickening of the visualized Achilles tendon. RAD/Ankle min 3 Views IMPRESSION: There is thickening of the Achilles tendon. Correlation with MRI if needed. Electronically Signed: Arias Umanzor DO at 23:54 EDT Reading Location ID and State: [facility] / [place] Tel [phone], Service support ,
[2022-02-11 12:12] LABS: Cholesterol 210 mg/dL (200); High Density Lipoprotein 77 mg/dL; Triglycerides 115 mg/dL; Uric Acid 4.5 mg/dL (2.6-6.0); Very Low Density Lipoprotein 23 mg/dL (5-40)
== END 2022-02-11 23:59 | disposition home or self-care (01) ==
PROVIDERS: PCP Family Medicine; Referring Provider Family Medicine; Visit Provider Family Medicine
DX: M79.672 Pain in left foot (principal); E78.5 Hyperlipidemia, unspecified; M10.9 Gout, unspecified
CPT/HCPCS: 36415; 73610; 80061; 84550

== ENCOUNTER → 2022-07-21 | Outpatient (CLI) | payer BC, SELFPAY ==
[2022-07-21 12:41] LABS: Absolute Lymphocyte Count 1.02 X10^3/uL (0.83-4.51); Absolute Neutrophil Count 2.2 X10^3/uL (2.0-7.7); Basophil# 0.03 X10^3/uL; Basophil% 0.8 % (0-1); Eosinophil# 0.08 X10^3/uL; Eosinophils% 2.2 % (0-5); Hematocrit 43.9 % (37-47); Hemoglobin 14.1 g/dL (12.0-15.0); Lymphocyte # 1.02 X10^3/ul (0.83-4.51); Lymphocyte % 27.5 % (19-41); Mean Corp Hgb Conc 32.1 g/dL (32-36); Mean Corpuscular Hgb 32.5 pg (27.0-32.0); Mean Corpuscular Volume 101.2 fL (81-99); Mean Platelet Vol. 10.9 fl (6.2-12.0); Monocyte% 10.8 % (0-10); NRBC Flagged by Analyzer 0 % (0-5); Neutrophil # 2.17 X10^3/uL (2.7-7.7); Neutrophil % 58.4 % (47-70); Platelet Count 267 K/mm3 (150-450); RBC Distribution Width CV 12.9 % (11.6-14.6); RBC Distribution Width SD 48.5 fl (35.1-43.9); Red Blood Count 4.34 M/mm3 (4.2-5.4); White Blood Count 3.7 K/mm3 (4.4-11.0)
[2022-07-21 13:44] LABS: ALB/GLOB Ratio 1.2 RATIO (0.9-2.4); AST(SGOT) 41 U/L (15-37); Alanine Aminotransfer ALT/SGPT 68 U/L (13-56); Albumin, Serum 4.2 g/dL (3.2-5.0); Alkaline Phosphatase 83 U/L (45-117); Anion Gap 9 (5-15); BUN 16 mg/dL (7-18); BUN/Creat Ratio 20.9 RATIO (10-20); Chloride 107 mmol/L (98-107); Cholesterol 211 mg/dL (200); Creatinine, Serum 0.76 mg/dL (0.55-1.02); EST Glomerular Filtration Rate 83 mL/min (>60); Est Glom Filt Rate - Afr Amer 101 mL/min (>60); Globulin 3.6 g/dL (2.2-4.2); Glucose 91 mg/dL (74-106); High Density Lipoprotein 83 mg/dL; Potassium 4.4 mmol/L (3.5-5.1); Protein, Total 7.8 g/dL (6.4-8.2); Sodium Level 139 mmol/L (136-145); Triglycerides 93 mg/dL; Very Low Density Lipoprotein 19 mg/dL (5-40)
== END | disposition home or self-care (01) ==
LOC: MFPLAB 10:48
PROVIDERS: PCP Family Medicine; Referring Provider Family Medicine; Visit Provider Family Medicine
DX: E78.5 Hyperlipidemia, unspecified (principal); K52.9 Noninfective gastroenteritis and colitis, unspecified
CPT/HCPCS: 36415; 80053; 80061; 85025; 87493; 87506

== ENCOUNTER → 2022-10-07 | Outpatient (CLI) | payer BC, SELFPAY ==
--- NOTE | 2022-10-07 16:13 | RAD_ITS ---
STUDY: X-RAY - RIGHT SHOULDER REASON FOR EXAM: Female, 56 years old. Shoulder pain. TECHNIQUE: 3 view(s) of the shoulder. COMPARISON: None. FINDINGS: Normal glenohumeral articulation. Mild arthrosis of the AC joint. Normal acromion. Normal humeral head and visualized proximal humerus. Clips projected over the breast and right axilla. Normal visualized pulmonary apex. RAD/Shoulder min 2 Views IMPRESSION: Mild arthrosis of the AC joint. No other abnormality. Electronically Signed: Grant Nguyen, at 9:36 EST ,
== END | disposition home or self-care (01) ==
LOC: MTRAD 16:13
PROVIDERS: PCP Family Medicine; Referring Provider Family Medicine; Visit Provider Family Medicine
DX: M19.011 Primary osteoarthritis, right shoulder (principal)
CPT/HCPCS: 73030

== ENCOUNTER → 2022-11-12 | Outpatient (CLI) | payer BC, SELFPAY ==
[2022-11-12 16:05] LABS: Anion Gap 7 (5-15); BUN 17 mg/dL (7-18); Calcium,Total 9.4 mg/dL (8.5-10.1); Chloride 105 mmol/L (98-107); Cholesterol 260 mg/dL (200); Creatinine, Serum 0.68 mg/dL (0.55-1.02); EST Glomerular Filtration Rate 95 mL/min (>60); Est Glom Filt Rate - Afr Amer 115 mL/min (>60); Glucose 83 mg/dL (74-106); High Density Lipoprotein 98 mg/dL; Potassium 4.5 mmol/L (3.5-5.1); Sodium Level 139 mmol/L (136-145); Thyroid Stim Hormone (TSH) 1.61 uIU/mL (0.358-3.74); Triglycerides 98 mg/dL; Uric Acid 5.2 mg/dL (2.6-6.0); Very Low Density Lipoprotein 20 mg/dL (5-40)
== END | disposition home or self-care (01) ==
LOC: MFPLAB 12:32
PROVIDERS: PCP Family Medicine; Visit Provider Family Medicine
DX: Z00.00 Encounter for general adult medical examination without abnormal findings (principal); E66.9 Obesity, unspecified
CPT/HCPCS: 36415; 80048; 80061; 84443; 84550

== ENCOUNTER → 2023-01-20 | Outpatient (CLI) | payer BC, SELFPAY ==
--- NOTE | 2023-01-20 12:49 | US_ITS ---
STUDY: RENAL ULTRASOUND - COMPLETE REASON FOR EXAM: Female, 57 years old. Urinary retention TECHNIQUE: Ultrasound evaluation of the kidneys was performed with real-time and static lebron-scale imaging. COMPARISON: None. FINDINGS: RIGHT KIDNEY: Normal location of the right kidney, which is normal in size. The right kidney measures 11.8 cm. There is a normal cortex of the right kidney. The renal cortex measures 1.4 cm. There is no right renal mass or cyst. There are no right renal calculi. There is no right hydronephrosis. DISTAL RIGHT URETER: There is non-visualization of the distal right ureter. There is no demonstrated right ureterovesical junction calculus. There is a visualized right ureteral jet. LEFT KIDNEY: Normal location of the left kidney, which is normal in size. The left kidney measures 11.5 cm. There is a normal cortex of the left kidney. The renal cortex measures 1.7 cm. There is no left renal mass or cyst. There are no left renal calculi. There is no left hydronephrosis. DISTAL LEFT URETER: There is non-visualization of the distal left ureter. There is no demonstrated left ureterovesical junction calculus. There is a visualized left ureteral jet. I.V.C.: The IVC is patent. BLADDER: The distended urinary bladder has a volume of ml. The empty urinary bladder has a volume of ml. There is a normal wall thickness of the distended urinary bladder. There is no demonstrated mass within the urinary bladder. There are no demonstrated bladder calculi. US/Kidney and Bladder IMPRESSION: Normal ultrasound of the kidneys and urinary bladder. Electronically Signed: Mahendra Larsen MD at 21:25 EDT ,
== END | disposition home or self-care (01) ==
LOC: US 12:49
PROVIDERS: PCP Family Medicine; Referring Provider Family Medicine; Visit Provider Family Medicine
DX: R33.9 Retention of urine, unspecified (principal)
CPT/HCPCS: 76770

== ENCOUNTER → 2023-03-03 | Outpatient (CLI) | payer BC, SELFPAY | END | disposition home or self-care (01) | LOC: MFPLAB 10:53 | PROVIDERS: PCP Family Medicine; Visit Provider Family Medicine | DX: M10.9 Gout, unspecified (principal) | CPT/HCPCS: 36415; 84550 ==

== ENCOUNTER → 2023-06-15 | Outpatient (CLI) | payer BC, SELFPAY ==
--- NOTE | 2023-06-15 11:04 | RAD_ITS ---
INDICATION: BACK PAIN EXAMINATION/TECHNIQUE: X-RAY - XR Spine Thoracic 2 Views COMPARISON: Chest radiograph April 23, 2020 FINDINGS: VERTEBRAE: 12 rib-bearing thoracic type vertebra. Chronic vertebral height loss in the midthoracic spine with mildly exaggerated kyphosis. No fracture or acute cortical disruption.. No spondylolisthesis. DISCS: Midthoracic mild disc height loss.. INCLUDED CHEST/ABDOMEN: Right superior lateral chest and posterior fat bonnie. No acute abnormalities. RAD/Thoracic Spine 2 Views IMPRESSION: No evidence of thoracic spinal fracture or spondylolisthesis. Chronic appearing midthoracic compression deformity with mildly exaggerated kyphosis. Electronically Signed: Luis Alberto Rey MD at 6:42 EDT ,
== END | disposition home or self-care (01) ==
LOC: MTRAD 11:01
PROVIDERS: PCP Family Medicine; Referring Provider Family Medicine; Visit Provider Family Medicine
DX: M54.6 Pain in thoracic spine (principal)
CPT/HCPCS: 72070

== ENCOUNTER 2024-01-06 09:03 | Outpatient (CLI) | payer BC, SELFPAY ==
--- NOTE | 2024-01-06 09:07 | US_ITS ---
INDICATION: family history of ischemic heart disease. EXAMINATION: Ultrasound US Abdominal Aorta (retroperitoneal limited) TECHNIQUE: Masterson scale and color doppler imaging was obtained of the abdominal aorta. COMPARISON: No relevant prior comparison study available FINDINGS: There is no abdominal aortic aneurysm. Maximal dimension is: 2.1 cm proximally. The iliac arteries bilaterally measuring about 1 cm in transverse diameter. US/Aorta IMPRESSION: No sonographic evidence of abdominal aortic aneurysm. Electronically Signed: Jose Manuel Vanegas MD at 15:17 EST ,
--- OUTSIDE RECORDS SUMMARY | 2024-01-06 09:48 | XMS RPT_ITS | CCD ---
Author Name Unknown Address [address] [place] [address] Organization [facility] Care Team Providers Care Network Relations Consultant Name Role Phone Farhan Kerr MD Primary Care Provider [phone] MAMMOGRAPHY-LESLEY, SELF-REQUESTED Referring Unavailable FARHAN KERR Attending Unavailable USHA, FARHAN Nayak Primary Care Unavailable FARHAN KERR Primary Care Unavailable BRITANY WOODWARD Attending Unavailable FARHAN KERR Referring Unavailable FARHAN KERR Primary Care Unavailable KEL MCCOY Admitting Unavailable KEL MCCOY Attending Unavailable FARHAN KERR Primary Care Unavailable FARHAN KERR Primary Care Unavailable BIRTANY WOODWARD Attending Unavailable FARHAN KERR Primary Care Unavailable FARHAN KERR Referring Unavailable BRITANY WOODWARD Attending Unavailable SELF, SELF Referring Unavailable FARHAN KERR Primary Care Unavailable Allergies Allergy Classification Reported Allergen(s) Allergy Type Date of Onset Reaction(s) Facility (16 sources) Diatrizoate Drug Allergy 11-03-2011 Swelling [facility] Medications Current Medications Medication Drug Class(es) Dates Sig (Normalized) Sig (Original) acetaminophen 500 mg oral tablet (5 sources) Start: take 2 tablets by mouth every eight hours acetaminophen 500 MG tablet Indications: S/P knee surgery Take 2 tablets by mouth every 8 hours. 100 tablet 0 02/26/2021 Active allopurinol 100 mg oral tablet (13 sources) Xanthine Oxidase Inhibitor take 1 tablet by mouth every other day allopurinol 100 MG tablet Take 1 tablet by mouth. Every other day 0 Active amoxicillin 25 mg/ml / clavulanate 6.25 mg/ml oral suspension (5 sources) Penicillin-class Antibacterial take 125 mg by mouth every eight hours amoxicillin-clavulan ate 125-31.25 MG/5ML suspension Take 125 mg by mouth every 8 hours. Dose is based on amoxicillin component 0 Active apixaban 2.5 mg oral tablet (9 sources) Factor Xa Inhibitor Start: 1 take 1 tablet by mouth every twelve hours apixaban 2.5 MG tablet Indications: DVT ppx Take 1 tablet by mouth every 12 hours. 70 tablet 0 02/27/2021 Active ascorbic acid 250 mg oral tablet (13 sources) Vitamin C take 1 tablet by mouth once daily ascorbic acid 250 MG tablet Take 250 mg by mouth daily. 0 Active atorvastatin 10 mg oral tablet (13 sources) HMG-CoA Reductase Inhibitor Start: 6 take 1 tablet by mouth at bedtime atorvastatin 10 MG Tab Indications: Mixed hyperlipidemia Take 1 tablet by mouth at bedtime. 0 01/13/2016 Active celecoxib 200 mg oral capsule (9 sources) Nonsteroidal Anti-inflammatory Drug Start: 1 take 1 capsule by mouth every twelve hours celecoxib 200 MG capsule Indications: S/P knee surgery Take 1 capsule by mouth every 12 hours. 180 capsule 1 09/14/2021 Active cholecalciferol 0.01 mg oral tablet (13 sources) Vitamin D take 1 tablet by mouth once daily cholecalciferol 10 MCG (400 UNIT) tablet Take 1 tablet by mouth daily. 0 Active cyclobenzaprine hydrochloride 5 mg oral tablet (5 sources) Muscle Relaxant Start: 1 take 1 tablet by mouth three times daily as needed for muscle spasms cyclobenzaprine 5 MG tablet Take 1 tablet by mouth 3 times daily as needed for Muscle spasms. 30 tablet 0 04/23/2021 Active diclofenac sodium 0.01 mg/mg topical gel (11 sources) Nonsteroidal Anti-inflammatory Drug Start: 2 Diclofenac Sodium (Voltaren) 1 % Gel gel Apply 2 g topically 4 times daily. 100 g 1 02/18/2022 Active docusate sodium 100 mg oral capsule (9 sources) Start: 1 take 1 capsule by mouth twice daily docusate 100 MG capsule Indications: S/P knee surgery Take 1 capsule by mouth 2 times daily. 60 capsule 0 02/26/2021 Active estradiol 0.1 mg/ml vaginal cream (3 sources) Estrogen Start: 3 estradiol 0.1 MG/GM cream Insert 0.5 g vaginally three times a week. 42.5 g 1 02/03/2023 Active gabapentin 100 mg oral capsule (9 sources) Anti-epileptic Agent Start: 1 take 1 capsule by mouth at bedtime gabapentin 100 MG capsule Take 1 capsule by mouth at bedtime. 30 capsule 0 03/11/2021 Active lisinopril 5 mg oral tablet (13 sources) Angiotensin Converting Enzyme Inhibitor Start: 0 take 1 tablet by mouth twice daily lisinopril 5 MG tablet Take 1 tablet by mouth 2 times daily. 180 tablet 3 09/02/2020 Active 24 hr phentermine 3.75 mg / topiramate 23 mg extended release oral capsule (4 sources) Sympathomimetic Amine Anorectic Start: 3 take 1 capsule by mouth once daily Qsymia 3.75-23 MG Cap SR 24HR Take 1 capsule by mouth daily. 0 11/22/2022 Active polyethylene glycol 3350 56613 mg powder for oral solution (5 sources) Osmotic Laxative Start: 1 take 1 dose by mouth once daily polyethylene glycol 17 g Pack packet Indications: S/P knee surgery Take 1 packet by mouth daily. 0 02/27/2021 Active sennosides, residential 8.6 mg oral tablet (5 sources) Start: 1 take 1 tablet by mouth every twelve hours as needed for constipation senna 8.6 MG tablet Indications: S/P knee surgery Take 1 tablet by mouth every 12 hours as needed for Constipation 1st Line. 0 02/26/2021 Active tamsulosin hydrochloride 0.4 mg oral capsule (5 sources) alpha-Adrenergic Theresa Start: 3 End: 3 take 1 capsule by mouth once daily Tamsulosin HCl 0.4 MG capsule Take 1 capsule by mouth daily. 90 capsule 3 08/10/2023 Active traMADol hydrochloride 50 mg oral tablet (9 sources) Opioid Agonist Start: 1 take 1 tablet by mouth every four hours as needed traMADol 50 MG tablet Indications: S/P right unicompartmental knee replacement Take 1 tablet by mouth every 4 hours as needed for up to 7 days. 42 tablet 0 05/13/2021 Active venlafaxine 50 mg oral tablet (13 sources) Serotonin and Norepinephrine Reuptake Inhibitor Start: 1 take 0.5 tablet by mouth once daily venlafaxine 50 MG tablet Indications: Hot flashes , Anxiety Take 0.5 tablets by mouth daily. 90 tablet 1 02/04/2021 Active vitamin a 14421 unt oral capsule (5 sources) Vitamin A take 3 mg by mouth once daily vitamin A 3 MG (04263 UT) capsule Take 10,000 Units by mouth daily. 0 Active vitamin b12 0.5 mg oral tablet (5 sources) Vitamin B12 take 1 tablet by mouth once daily cyanocobalamin 500 MCG tablet Take 500 mcg by mouth daily. 0 Active zinc sulfate 220 mg oral capsule (13 sources) take 1 capsule by mouth once daily zinc sulfate 220 MG capsule Take 220 mg by mouth daily. 0 Active Problems Active Problems Problem Classification Problem Date Documented Date Episodic/Chronic Anxiety disorders (13 sources) Anxiety; Translations: [Anxiety disorder, unspecified] Onset: 02-19-2021 02-19-2021 Chronic Cancer of breast (3 sources) Malignant tumor of breast ; Translations: [Malignant neoplasm of unspecified site of unspecified female breast] Onset: 02-02-2023 02-02-2023 Chronic Cardiac dysrhythmias (3 sources) Cardiac arrhythmia; Translations: [Cardiac arrhythmia, unspecified] Onset: 02-02-2023 02-02-2023 Chronic Disorders of lipid metabolism (20 sources) Mixed hyperlipidemia; Translations: [Mixed hyperlipidemia] Onset: 08-16-2013 Resolved: 01-13-2016 01-13-2016 Chronic Essential hypertension (13 sources) Benign hypertension; Translations: [Essential (primary) hypertension] Onset: 02-19-2021 02-19-2021 Chronic Heart valve disorders (3 sources) Mitral valve prolapse; Translations: [Nonrheumatic mitral (valve) prolapse] Onset: 02-02-2023 02-02-2023 Chronic Nutritional deficiencies (13 sources) Vitamin D deficiency; Translations: [Vitamin D deficiency, unspecified] Onset: 08-16-2013 08-16-2013 Chronic Osteoarthritis (20 sources) Osteoarthritis of right knee joint; Translations: [Unilateral primary osteoarthritis, right knee] Onset: 02-06-2021 02-06-2021 Chronic Other connective tissue disease (1 source) History of total knee arthroplasty; Translations: [Presence of right artificial knee joint] Chronic Other connective tissue disease (2 sources) Left achilles tendonitis; Translations: [Achilles tendinitis, left leg] Episodic Other female genital disorders (3 sources) Pain in female genitalia on intercourse; Translations: [Unspecified dyspareunia] Chronic Other female genital disorders (2 sources) Unspecified dyspareunia; Translations: [Unspecified dyspareunia] Onset: 02-03-2023 Chronic Other non-traumatic joint disorders (2 sources) Chronic ankle pain; Translations: [Pain in right ankle and joints of right foot] Episodic Other nutritional; endocrine; and metabolic disorders (13 sources) Obese class I; Translations: [Obesity, unspecified] Onset: 08-17-2013 08-17-2013 Chronic Other screening for suspected conditions (not mental disorders or infectious disease) (20 sources) Abnormal findings on diagnostic imaging of breast; Translations: [Other abnormal and inconclusive findings on diagnostic imaging of breast] Onset: 11-03-2011 Resolved: 08-17-2013 11-03-2011 Episodic Past or Other Problems Problem Classification Problem Date Documented Da te Episodic/Chronic Allergic reactions (13 sources) Allergy to contrast media; Translations: [Radiographic dye allergy status] Onset: 06-07-2012 06-07-2012 Episodic Cancer of breast (14 sources) History of malignant neoplasm of breast; Translations: [Personal history of malignant neoplasm of breast] Onset: 06-07-2012 06-07-2012 Episodic Cardiac dysrhythmias (3 sources) Intermittent palpitations; Translations: [Palpitations] Onset: 02-02-2023 02-02-2023 Episodic Coma; stupor; and brain damage (3 sources) Daytime somnolence; Translations: [Somnolence] Onset: 02-02-2023 02-02-2023 Episodic Genitourinary symptoms and ill-defined conditions (15 sources) Finding of sensation of bladder; Translations: [Feeling of incomplete bladder emptying] Onset: 02-03-2023 Episodic Immunizations and screening for infectious disease (3 sources) Contact with or exposure to other viral diseases; Translations: [Contact with and (suspected) exposure to covid-19] Onset: 01-05-2022 02-02-2023 Episodic Malaise and fatigue (3 sources) Fatigue; Translations: [Other fatigue] Onset: 02-02-2023 02-02-2023 Episodic Mood disorders (13 sources) Mood disorders Onset: 08-19-2021 Resolved: 08-19-2021 08-19-2021 Nonspecific chest pain (3 sources) Chest discomfort; Translations: [Other chest pain] Onset: 02-02-2023 02-02-2023 Episodic Other connective tissue disease (13 sources) Bilateral plantar fasciitis; Translations: [Plantar fascial fibromatosis] Onset: 01-13-2016 01-13-2016 Episodic Other connective tissue disease (8 sources) Disorder of Achilles tendon; Translations: [Other specified disorders of synovium and tendon, other site] Onset: 05-26-2022 05-26-2022 Episodic Other connective tissue disease (3 sources) Pain in left foot; Translations: [Pain in left foot] Onset: 02-18-2022 02-02-2023 Episodic Other connective tissue disease (2 sources) Other specified disorders of synovium and tendon, other site; Translations: [Other specified disorders of synovium and tendon, other site] Onset: 09-17-2022 Episodic Other gastrointestinal disorders (13 sources) Diarrhea; Translations: [Diarrhea, unspecified] Onset: 08-16-2013 08-16-2013 Episodic Other injuries and conditions due to external causes (3 sources) Unspecified injury of left wrist, hand and finger(s), initial encounter; Translations: [Unspecified injury of left wrist, hand and finger(s), initial encounter] Onset: 03-10-2020 02-02-2023 Episodic Other nervous system disorders (13 sources) Polyneuropathy; Translations: [Polyneuropathy, unspecified] Onset: 01-13-2016 Resolved: 01-13-2016 01-13-2016 Chronic Other nervous system disorders (13 sources) Pain in limb; Translations: [Paresthesia of skin] Onset: 01-13-2016 01-13-2016 Episodic Other non-traumatic joint disorders (13 sources) Pain in left knee; Translations: [Pain in joint, lower leg] Onset: 01-13-2016 01-13-2016 Episodic Other non-traumatic joint disorders (13 sources) Ankle pain; Translations: [Pain in left ankle and joints of left foot] Onset: 01-13-2016 01-13-2016 Episodic Residual codes; unclassified (13 sources) Flushing; Translations: [Flushing] Onset: 02-18-2014 02-18-2014 Episodic Residual codes; unclassified (13 sources) Finding of systemic arterial pressure; Translations: [Other general symptoms and signs] Onset: 01-22-2016 01-22-2016 Episodic Spondylosis; intervertebral disc disorders; other back problems (13 sources) Lumbago with sciatica; Translations: [Lumbago with sciatica, unspecified side] Onset: 11-24-2015 11-24-2015 Episodic Results Test Name Value Interpretation Reference Range Facil ity Vital Signs Date Time Vital Sign Value Performing Clinician Faci lity 08-10-2023 12:53-0400 Body height 167.6 cm Britany XIAO Work Phone: [facility] 08-10-2023 12:53-0400 Body mass index (BMI) [Ratio] 30.33 kg/m2 Britany Woodward APRN-MEAT DEPARTMENT MANAGER Work Phone: [facility] 08-10-2023 12:53-0400 Body temperature 98.6 [degF] Britany Woodward APRN-MEAT DEPARTMENT MANAGER Work Phone: [facility] 08-10-2023 12:53-0400 Body weight 85.23 kg Britany Woodward APRN-MEAT DEPARTMENT MANAGER Work Phone: [facility] 08-10-2023 12:53-0400 Diastolic blood pressure 74 mm[Hg] Britany Woodward APRN-MEAT DEPARTMENT MANAGER Work Phone: [facility] 08-10-2023 12:53-0400 Heart rate 85 /min Britany HARRINGTONMEAT DEPARTMENT MANAGER Work Phone: [facility] 08-10-2023 12:53-0400 SaO2% (BldA) [Mass fraction] 97 % Britany Woodward APRN-MEAT DEPARTMENT MANAGER Work Phone: [facility] 08-10-2023 12:53-0400 Systolic blood pressure 128 mm[Hg] Britany Woodward APRN-MEAT DEPARTMENT MANAGER Work Phone: [facility] 02-03-2023 12:59-0400 Body height 167.6 cm Britany HARRINGTONMEAT DEPARTMENT MANAGER Work Phone: [facility] 02-03-2023 12:59-0400 Body mass index (BMI) [Ratio] 34.12 kg/m2 Britany Woodward APRN-MEAT DEPARTMENT MANAGER Work Phone: [facility] 02-03-2023 12:59-0400 Body temperature 98.4 [degF] Britany Woodward APRN-MEAT DEPARTMENT MANAGER Work Phone: [facility] 02-03-2023 12:59-0400 Body weight 95.89 kg Britany Woodward [employer]-MEAT DEPARTMENT MANAGER Work Phone: [facility] 02-03-2023 12:59-0400 Diastolic blood pressure 69 mm[Hg] Britany Woodward APRN-MEAT DEPARTMENT MANAGER Work Phone: [facility] 02-03-2023 12:59-0400 Heart rate 64 /min Britany Woodward [employer]-MEAT DEPARTMENT MANAGER Work Phone: [facility] 02-03-2023 12:59-0400 SaO2% (BldA) [Mass fraction] 100 % Britany Woodward [employer]-MEAT DEPARTMENT MANAGER Work Phone: [facility] 02-03-2023 12:59-0400 Systolic blood pressure 112 mm[Hg] Britany Woodward APRN-MEAT DEPARTMENT MANAGER Work Phone: [facility] 01-04-2023 13:25-0500 Body height 167.6 cm Britany Woodward APRN-MEAT DEPARTMENT MANAGER Work Phone: [facility] 01-04-2023 13:25-0500 Body mass index (BMI) [Ratio] 34.06 kg/m2 Britany Woodward APRN-MEAT DEPARTMENT MANAGER Work Phone: [facility] 01-04-2023 13:25-0500 Body weight 95.71 kg Britany Woodward APRN-MEAT DEPARTMENT MANAGER Work Phone: [facility] 01-04-2023 13:25-0500 Diastolic blood pressure 82 mm[Hg] Britany Crissy [employer]-MEAT DEPARTMENT MANAGER Work Phone: [facility] 01-04-2023 13:25-0500 Heart rate 93 /min Britany Crissy [employer]-MEAT DEPARTMENT MANAGER Work Phone: [facility] 01-04-2023 13:25-0500 SaO2% (BldA) [Mass fraction] 100 % Britany Crissy [employer]-MEAT DEPARTMENT MANAGER Work Phone: [facility] 01-04-2023 13:25-0500 Systolic blood pressure 116 mm[Hg] Britany Crissy TIM-MEAT DEPARTMENT MANAGER Work Phone: [facility] 05-24-2022 16:35-0400 Body height 167.6 cm Kel Mccoy MD Work Phone: [facility] 05-24-2022 16:35-0400 Body mass index (BMI) [Ratio] 35.67 kg/m2 Kel Mccoy MD Work Phone: [facility] 05-24-2022 16:35-0400 Body weight 100.25 kg Kel Mccoy MD Work Phone: [facility] 05-24-2022 16:35-0400 Diastolic blood pressure 80 mm[Hg] Kel Mccoy MD Work Phone: [facility] 05-24-2022 16:35-0400 Systolic blood pressure 126 mm[Hg] Kel Mccoy MD Work Phone: [facility] 02-18-2022 10:00-0400 Body height 170.2 cm Kel Mccoy MD Work Phone: [facility] 02-18-2022 10:00-0400 Body mass index (BMI) [Ratio] 34.77 kg/m2 Kel Mccoy MD Work Phone: [facility] 02-18-2022 10:00-0400 Body weight 100.7 kg Kel Mccoy MD Work Phone: [facility] Encounters Encounter Date Encounter Type Care Provider Facility Start: 08-26-2023 End: 08-26-2023 Subsequent hospital visit by physician Farhan Kerr MD Work Phone: [facility] Mammography at [facility] Procedures Date Procedure Procedure Detail Performing Clinician Start: 01-04-2023 Urnls dip stick/tablet rgnt auto w/o microscopy Britany Woodward [employer]-MEAT DEPARTMENT MANAGER Work Phone: Start: 08-25-2022 Screening mammography bi 2-view breast inc cad Jessica Garcia [employer]-MEAT DEPARTMENT MANAGER Work Phone: Start: 05-24-2022 Mri any jt lower extrem w/o contrast matrl Kel Mccoy MD Work Phone: Start: 02-18-2022 Radex ankle complete minimum 3 views Kel Mccoy MD Work Phone: Start: 02-12-2022 Radiologic exam knee complete 4/more views Kim Garza [employer]-MEAT DEPARTMENT MANAGER Work Phone: Start: 04-04-2014 Lipid 1996 panel - Serum or Plasma Herminio Braxton MD Work Phone: History of operative procedure on knee S/P right unicompartmental knee replacement Herminio Braxton MD Work Phone: Plan of Treatment Date Care Activity Detail Author Start: 08-15-2024 End: 08-15-2024 Patient encounter procedure 08/15/2024 11:30 AM EDT Office Visit [facility] [address] [place] [address] Britany Woodward, [employer] CASTER-MEAT DEPARTMENT MANAGER [address] [place] [address] [facility] Start: 08-26-2023 End: 08-26-2023 Patient encounter procedure 08/26/2023 4:40 PM EDT Appointment [facility] at [facility] Breast [place] [address] [place] [id number] Farhan Kerr MD [address] [place] [address] [facility] Mammography at [facility] Start: 08-25-2023 Screening for malignant neoplasm of breast MAMMOGRAM LEFT [facility] Start: 08-10-2023 End: 08-10-2023 Patient encounter procedure 08/10/2023 Office Visit Urology Britany Woodward, [employer] CASTER-MEAT DEPARTMENT MANAGER [address] [place] [address] [facility] Start: 07-01-2023 COVID-19 VACCINE ( season) COVID-19 VACCINE ( season) [facility] Start: 07-01-2023 Influenza vaccination [facility] Start: 02-03-2023 End: 02-03-2023 Patient encounter procedure 02/03/2023 Office Visit Urology Britany Woodward APRN-MEAT DEPARTMENT MANAGER [address] [facility] [address] [place] [address] [facility] Start: 01-04-2023 End: 01-05-2024 US Kidney US RENAL Imaging Routine Feeling of incomplete bladder emptying Urinary frequency Expected: 01/04/2023, Expires: 01/05/2024 [facility] Immunizations Immunization Date Immunization Notes Care Provider Fa cility 08-05-2021 influenza, injectabl e, quadrivalent, contains preservative Britany Woodward APRN-MEAT DEPARTMENT MANAGER Work Phone: [facility] 08-05-2021 influenza virus vaccine, unspecified formulation Kel Mccoy MD Work Phone: [facility] 09-22-2019 Seasonal, quadrivale nt, recombinant, injectable influenza vaccine, preservative free Britany Crissy GRE[employer] WARE CASTER-[facility] Work Phone: [facility] 09-30-2017 influenza, seasonal, injectable Britany Crissy [employer] CASTER-MEAT DEPARTMENT MANAGER Work Phone: [facility] 08-02-2013 influenza virus vaccine, whole virus Herminio Braxton MD Work Phone: [facility] Payers Date Payer Category Payer Unknown [id number] 1965 Unknown [id number] 1966 Unknown [id number] 1966 Unknown [id number] 1966 Unknown [id number] 1966 Unknown [id number] 1966 Unknown [id number] Unknown ANTHEM DANIEL O PPO POS [id number] Effective for all dates [address] [place] [address] [id number] Unknown [id number] Social History Date Type Detail Facility Start: 08-26-2020 End: 01-04-2023 Tobacco smoking status NHIS Ex-smoker [facility] End: 10-31-1998 History of tobacco use Current smoker [facility] End: 10-31-1998 History of tobacco use Cigarette Smoker [facility] Start: 08-26-2020 End: 01-04-2023 Tobacco use and exposure Smokeless tobacco non-user [facility] Start: 09-21-2021 End: 08-26-2023 Alcohol intake Current drinker of alcohol (finding) [facility] Start: 08-19-2021 End: 09-21-2021 Alcohol intake [facility] Start: 08-06-2020 End: 10-08-2020 History SDOH Alcohol Frequency 2 [facility] Start: 08-06-2020 End: 10-08-2020 History SDOH Alcohol Std Drinks 1 [facility] Start: 07-21-2009 History SDOH Alcohol Comment occassional [facility] Start: 08-06-2020 History SDOH Financial 5 [facility] Start: 1965 Sex Assigned At Not on file [facility] Start: 12-25-2022 End: 01-04-2023 Exposure to SARS-CoV-2 (event) Not sure [facility] Start: 10-08-2020 End: 08-19-2021 Alcohol Use Disorder Identification Test - Consumption [AUDIT-C] [facility] How often to you hav e a drink containing alcohol? Monthly or less [facility] How many standard dr inks containing alcohol do you have on a typical day? 1 or 2 [facility] How often do you hav e 6 or more drinks on 1 occasion? Never [facility] How hard is it for y ou to pay for the very basics like food, housing, medical care, and heating Not hard at all [facility] (I/We) worried solomon er (my/our) food would run out before (I/we) got money to buy more. Never true [facility] Gender identity Identifies as fe male gender (finding) [facility] Medical Equipment Procedure Code Equipment Code Equipment Origin al Text Equipment Identifier Dates Component Tibial Knee Right Medial C Brewster Microplasty - [id number] Start: 02-26-2021 Clinical Notes 02-12-2022 to 08-26-2023 Cat Romano - 08/26/2023 4:40 PM NINOSKA Rodgers - 08/10/2023 1:00 PM NINOSKA Rodgers - 02/03/2023 1:00 PM EDTPatient InstructionsPatient Instructions Note Date & Type Note Facility 08-26-2023 History of Present illness Narrative Patient offered a medical passenger booking clerk for sensitive exam. Pt declined documented in this encounter [facility] 08-10-2023 History of Present illness Narrative Established Patient Visit: Urology Female Pelvic Medicine and Reconstructive Surgery Chief Complaint Patient presents with Follow-up 6 month follow up Referring Provider: Farhan Kerr MD Interval History Ms. Joshua presents today for follow-up frequency/nocturia. She states, I am doing well . She states, I can tell when I miss a dose . Her sleep is dramatically improved. She used Estrogen cream temporarily but then became scared of the side effects. However, when she used it she noticed significant improvement. Last office visit 02/03/23: Ms. Joshua presents today for follow-up feelings of incomplete emptying/frequency/nocturia. States, I just got over a respiratory infection . With Flomax, stream is better and she is waking up less at night and feels empty. Still having spraying with voiding in the [place] while horse back riding. Experiencing some dryness in her vagina and urethra which is very painful. Very hesitant to start Estrogen cream due to cancer history understandably. Last office visit 01/04/23: HPI Ms. Joshua is a 57 y.o. 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 I had the pleasure of seeing Ms. Esme Joshua in the urology clinic today for I had breast cancer when I was really young and I had extreme treatment . She likes to camp, horseback ride, and hike. States she has spraying with urination and is unable to squat to pee in the [place] like her friends do. Reports feeling full and like she is not emptying. States last week she was lifting bails of hay and she felt like she was full of urine after and having back pain. States her sister gave her Bactrim to start last weekend because she felt like she had a UTI. She took a total of 5 pills. SANDRA: No UUI: No Pads: 0 Urgency: Yes Frequency: Yes Nocturia: 5 times/night Straining to void: Yes Empties to completion: No Fluids: 42 oz water/day Caffeine: 3-4 cups of coffee/ decaf ROS: Hematuria: No UTIs: No Kidney stones: No Bowel function: Bowel Movement per Week: Daily Constipation: No Diarrhea: No Fecal Incontinence: No Gynecological History: Vaginal deliveries: 0 Menopausal: Yes Prior hysterectomy: Yes History of abnormal PAPs: No Hormone replacement: No Prolapse Symptoms: Bulge/pressure: No Sexual History: Sexually active: Yes Desires to be sexually active in future: Yes Dyspareunia: Yes Past Medical History Past Medical History: Diagnosis Date Arthritis Breast cancer 1998 right breast, tumor cells were ER and AR positive , HER-2/lance receptor over-expression negative Essential hypertension, benign Gout 2016 History of chemotherapy 1998 History of radiation therapy 1998 right breast Hyperlipidemia Neuropathy of lower extremity 04/2012 both feet Plantar fasciitis 04/2012 left Past Surgical History Past Surgical History: Procedure Laterality Date ARTHROPLASTY KNEE FEMORAL CONDYLE/TIBIAL PLATEAU Right 02/26/2021 Laterality: Right; Surgeon: Herminio Braxton MD; Location: [facility] SAME DAY SURGERY MAIN OR KNEE ARTHROSCOPY Left 2016 torn meniscus CORE BIOPSY OF THE BREAST Left 2007 Fat necrosis and scarring with dystrophic microcalcifications RECONSTRUCTION NIPPLE 08-15-2007 revision of right breast reconstruction, right nipple reconstruction with star flap RECONSTRUCTION BREAST 02-15-2007 right breast REDUCTION REVISION BREAST Left 02/15/2007 benign OOPHORECTOMY Bilateral 2004 HYSTERECTOMY 2003 MASTECTOMY Right 09-07-1999 Residual IDC, DCIS, LN containing mets CORE BIOPSY OF THE BREAST Right 08/25/1999 IDC/DCIS LAMINECTOMY VERTEBRAL SEGMENT SACRAL TONSILLECTOMY Medications Current Outpatient Medications Medication Sig Dispense Refill allopurinol 100 MG tablet Take 1 tablet by mouth. Every other day atorvastatin 10 MG Tab Take 1 tablet by mouth at bedtime. estradiol 0.1 MG/GM cream Insert 0.5 g vaginally three times a week. 42.5 g 1 lisinopril 5 MG tablet Take 1 tablet by mouth 2 times daily. 180 tablet 3 Qsymia 3.75-23 MG Cap SR 24HR Take 1 capsule by mouth daily. Tamsulosin HCl 0.4 MG capsule Take 1 capsule by mouth daily. 90 capsule 3 venlafaxine 50 MG tablet Take 0.5 tablets by mouth daily. 90 tablet 1 apixaban 2.5 MG tablet Take 1 tablet by mouth every 12 hours. 70 tablet 0 ascorbic acid 250 MG tablet Take 250 mg by mouth daily. (Patient not taking: Reported on 01/04/2023) celecoxib 200 MG capsule Take 1 capsule by mouth every 12 hours. 180 capsule 1 cholecalciferol 10 MCG (400 UNIT) tablet Take 1 tablet by mouth daily. Diclofenac Sodium (Voltaren) 1 % Gel gel Apply 2 g topically 4 times daily. (Patient not taking: Reported on 01/04/2023) 100 g 1 docusate 100 MG capsule Take 1 capsule by mouth 2 times daily. 60 capsule 0 gabapentin 100 MG capsule Take 1 capsule by mouth at bedtime. 30 capsule 0 traMADol 50 MG tablet Take 1 tablet by mouth every 4 hours as needed for up to 7 days. 42 tablet 0 zinc sulfate 220 MG capsule Take 220 mg by mouth daily. (Patient not taking: Reported on 01/04/2023) No current facility-administered medications for this visit. Allergies Allergies Allergen Reactions Diatrizoate Swelling Ivp Dye, Iodine Containing Swelling Social History Social History Tobacco Use Smoking status: Former Types: Cigarettes Quit date: 1998 Years since quittin.7 Smokeless tobacco: Never Vaping Use Vaping Use: Never used Substance Use Topics Alcohol use: Yes Alcohol/week: 1.0 standard drink of alcohol Types: 1 Cans of beer per week Comment: occassional Drug use: No Family History Family History Problem Relation Age of Onset Breast Cancer Maternal Cousin Breast Cancer Mother 60 Diabetes Mother Breast Cancer Maternal Grandmother Lung Cancer Father Hypertension Father Heart Disease - Other Father Gout Father Ovarian Cancer Neg Hx Uterine Cancer Neg Hx Review of Systems The complete review of systems was completed. Pertinent positives and negatives are noted in HPI. Physical Exam BP 128/74 Pulse 85 Temp 98.6 F (37 C) Ht 1.676 m (5' 6 ) Wt 85.2 kg (187 lb 14.4 oz) SpO2 97% BMI 30.33 kg/m Smoking Status Former Body mass index is 30.33 kg/m . Constitutional: NAD, WDWN. PE External genitalia: Normal labia minora and majora, normal clitoris, prepuce FACILITIES MAINTENANCE ASSISTANT: negative, 30 hypermobility Urinary system: urethral meatus normal, urethra and bladder palpate normally Vaginal: atrophic No SANDRA demonstrated on exam No prolapse present Labs Lab Results Component Value Date WBC 8.78 02/26/2021 HGB 11.7 02/26/2021 HCT 36.0 02/26/2021 PLATELET 234 02/26/2021 MCV 98.9 (H) 02/26/2021 Lab Results Component Value Date SODIUM 137 02/26/2021 POTASSIUM 4.4 02/26/2021 CHLORIDE 105 02/26/2021 CO2 21 (L) 02/26/2021 BUN 22 02/26/2021 CREATSERUM 0.96 02/26/2021 GLUCOSE negative 01/04/2023 Lab Results Component Value Date APPEARANCE clear 01/04/2023 COLOR yellow 01/04/2023 PH 5.5 01/04/2023 SPECIFICGRAV 1.020 01/04/2023 PROTEIN negative 01/04/2023 GLUCOSE negative 01/04/2023 BILIRUBIN negative 01/04/2023 UROBILINOGEN 0.2 01/04/2023 BLOOD negative 01/04/2023 NITRITE negative 01/04/2023 LEUKOCYTE negative 01/04/2023 Post-Void Residual A post-void residual was measured by ultrasonic bladder scanner. PVR: 20 Radiographic Studies None Assessment Ms. Joshua is a 57 y.o. female with the following diagnosis: ICD-10-CM 1. Feeling of incomplete bladder emptying R39.14 2. Urinary frequency R35.0 3. Nocturia R35.1 4. Dyspareunia in female N94.10 Plan 1. Lifestyle modifications - Maintain adequate hydration of 64 oz water/day - Restrict fluids 2-3 hours prior to bedtime 2. PVR today to reassess emptying 4. Continue Flomax 0.4 mg daily at bedtime- refills sent 5. Continue Estrace MWF at bedtime, can substitute coconut oil if afraid of SE 6. Follow-up in 1 year All questions were answered. NINOSKA Tellez documented in this encounter [facility] 02-03-2023 History of Present illness Narrative Established Patient Visit: Urology Female Pelvic Medicine and Reconstructive Surgery Chief Complaint Patient presents with Follow-up 4 week follow up Referring Provider: Farhan Kerr MD Interval History Ms. Joshua presents today for follow-up feelings of incomplete emptying/frequency/nocturia. States, I just got over a respiratory infection . With Flomax, stream is better and she is waking up less at night and feels empty. Still having spraying with voiding in the [place] while horse back riding. Experiencing some dryness in her vagina and urethra which is very painful. Very hesitant to start Estrogen cream due to cancer history understandably. Last office visit 01/04/23: HPI Ms. Joshua is a 57 y.o. 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 I had the pleasure of seeing Ms. Esme Joshua in the urology clinic today for I had breast cancer when I was really young and I had extreme treatment . She likes to camp, horseback ride, and hike. States she has spraying with urination and is unable to squat to pee in the [place] like her friends do. Reports feeling full and like she is not emptying. States last week she was lifting bails of hay and she felt like she was full of urine after and having back pain. States her sister gave her Bactrim to start last weekend because she felt like she had a UTI. She took a total of 5 pills. SANDRA: No UUI: No Pads: 0 Urgency: Yes Frequency: Yes Nocturia: 5 times/night Straining to void: Yes Empties to completion: No Fluids: 42 oz water/day Caffeine: 3-4 cups of coffee/ decaf ROS: Hematuria: No UTIs: No Kidney stones: No Bowel function: Bowel Movement per Week: Daily Constipation: No Diarrhea: No Fecal Incontinence: No Gynecological History: Vaginal deliveries: 0 Menopausal: Yes Prior hysterectomy: Yes History of abnormal PAPs: No Hormone replacement: No Prolapse Symptoms: Bulge/pressure: No Sexual History: Sexually active: Yes Desires to be sexually active in future: Yes Dyspareunia: Yes Past Medical History Past Medical History: Diagnosis Date Arthritis Breast cancer 1998 right breast, tumor cells were ER and AR positive , HER-2/lance receptor over-expression negative Essential hypertension, benign Gout 2016 History of chemotherapy 1998 History of radiation therapy 1998 right breast Hyperlipidemia Neuropathy of lower extremity 04/2012 both feet Plantar fasciitis 04/2012 left Past Surgical History Past Surgical History: Procedure Laterality Date ARTHROPLASTY KNEE FEMORAL CONDYLE/TIBIAL PLATEAU Right 02/26/2021 Laterality: Right; Surgeon: Herminio Braxton MD; [facility] KNEE ARTHROSCOPY Left 2015 torn meniscus CORE BIOPSY OF THE BREAST Left 2007 Fat necrosis and scarring with dystrophic microcalcifications RECONSTRUCTION NIPPLE 08-15-2007 revision of right breast reconstruction, right nipple reconstruction with star flap RECONSTRUCTION BREAST 02-15-2007 right breast REDUCTION REVISION BREAST Left 02/15/2007 benign OOPHORECTOMY Bilateral 2004 HYSTERECTOMY 2003 MASTECTOMY Right 09-07-1999 Residual IDC, DCIS, LN containing mets CORE BIOPSY OF THE BREAST Right 08/25/1999 IDC/DCIS LAMINECTOMY VERTEBRAL SEGMENT SACRAL TONSILLECTOMY Medications Current Outpatient Medications Medication Sig Dispense Refill allopurinol 100 MG tablet Take 1 tablet by mouth. Every other day atorvastatin 10 MG Tab Take 1 tablet by mouth at bedtime. lisinopril 5 MG tablet Take 1 tablet by mouth 2 times daily. 180 tablet 3 Qsymia 3.75-23 MG Cap SR 24HR Take 1 capsule by mouth daily. Tamsulosin HCl 0.4 MG capsule Take 1 capsule by mouth daily. 30 capsule 3 venlafaxine 50 MG tablet Take 0.5 tablets by mouth daily. 90 tablet 1 apixaban 2.5 MG tablet Take 1 tablet by mouth every 12 hours. 70 tablet 0 ascorbic acid 250 MG tablet Take 250 mg by mouth daily. (Patient not taking: Reported on 01/04/2023) celecoxib 200 MG capsule Take 1 capsule by mouth every 12 hours. 180 capsule 1 cholecalciferol 10 MCG (400 UNIT) tablet Take 1 tablet by mouth daily. Diclofenac Sodium (Voltaren) 1 % Gel gel Apply 2 g topically 4 times daily. (Patient not taking: Reported on 01/04/2023) 100 g 1 docusate 100 MG capsule Take 1 capsule by mouth 2 times daily. 60 capsule 0 estradiol 0.1 MG/GM cream Insert 0.5 g vaginally three times a week. 42.5 g 1 gabapentin 100 MG capsule Take 1 capsule by mouth at bedtime. 30 capsule 0 traMADol 50 MG tablet Take 1 tablet by mouth every 4 hours as needed for up to 7 days. 42 tablet 0 zinc sulfate 220 MG capsule Take 220 mg by mouth daily. (Patient not taking: Reported on 01/04/2023) No current facility-administered medications for this visit. Allergies Allergies Allergen Reactions Diatrizoate Swelling Ivp Dye, Iodine Containing Swelling Social History Social History Tobacco Use Smoking status: Former Types: Cigarettes Quit date: 1998 Years since quittin.2 Smokeless tobacco: Never Vaping Use Vaping Use: Never used Substance Use Topics Alcohol use: Yes Alcohol/week: 1.0 standard drink Types: 1 Cans of beer per week Comment: occassional Drug use: No Family History Family History Problem Relation Age of Onset Breast Cancer Maternal Cousin Breast Cancer Mother 60 Diabetes Mother Breast Cancer Maternal Grandmother Lung Cancer Father Hypertension Father Heart Disease - Other Father Gout Father Ovarian Cancer Neg Hx Uterine Cancer Neg Hx Review of Systems The complete review of systems was completed. Pertinent positives and negatives are noted in HPI. Physical Exam BP 112/69 Pulse 64 Temp 98.4 F (36.9 C) Ht 1.676 m (5' 6 ) Wt 95.9 kg (211 lb 6.4 oz) SpO2 100% BMI 34.12 kg/m Smoking Status Former Body mass index is 34.12 kg/m . Constitutional: NAD, WDWN. PE External genitalia: Normal labia minora and majora, normal clitoris, prepuce FACILITIES MAINTENANCE ASSISTANT: negative, 30 hypermobility Urinary system: urethral meatus normal, urethra and bladder palpate normally Vaginal: atrophic No SANDRA demonstrated on exam No prolapse present Labs Lab Results Component Value Date WBC 8.78 02/26/2021 HGB 11.7 02/26/2021 HCT 36.0 02/26/2021 PLATELET 234 02/26/2021 MCV 98.9 (H) 02/26/2021 Lab Results Component Value Date SODIUM 137 02/26/2021 POTASSIUM 4.4 02/26/2021 CHLORIDE 105 02/26/2021 CO2 21 (L) 02/26/2021 BUN 22 02/26/2021 CREATSERUM 0.96 02/26/2021 GLUCOSE negative 01/04/2023 Lab Results Component Value Date APPEARANCE clear 01/04/2023 COLOR yellow 01/04/2023 PH 5.5 01/04/2023 SPECIFICGRAV 1.020 01/04/2023 PROTEIN negative 01/04/2023 GLUCOSE negative 01/04/2023 BILIRUBIN negative 01/04/2023 UROBILINOGEN 0.2 01/04/2023 BLOOD negative 01/04/2023 NITRITE negative 01/04/2023 LEUKOCYTE negative 01/04/2023 Post-Void Residual A post-void residual was measured by ultrasonic bladder scanner. PVR: 65 Radiographic Studies None Assessment Ms. Joshua is a 57 y.o. female with the following diagnosis: ICD-10-CM 1. Feeling of incomplete bladder emptying R39.14 2. Urinary frequency R35.0 3. Nocturia R35.1 4. Dyspareunia in female N94.10 Plan 1. Lifestyle modifications - Maintain adequate hydration of 64 oz water/day - Restrict fluids 2-3 hours prior to bedtime 2. PVR improved today 3. DEIDRE reviewed 4. Continue Flomax 0.4 mg daily at bedtime 5. Start Estrace MWF at bedtime 6. Follow-up in 6 months in person All questions were answered. NINOSKA Tellez documented in this encounter [facility] 02-03-2023 Instructions NINOSKA Tellez - 02/03/2023 1:00 PM EDT Continue Flomax 0.4 mg daily Start Replens to help with vaginal moisturizing documented in this encounter [facility] 01-04-2023 History of Present illness Narrative New Patient Visit: Urology Female Pelvic Medicine and Reconstructive Surgery Chief Complaint Patient presents with New Patient Urinary urgency Referring Provider: Self, Self HPI Ms. Joshua is a 57 y.o. 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 I had the pleasure of seeing Ms. Esme Joshua in the urology clinic today for I had breast cancer when I was really young and I had extreme treatment . She likes to camp, horseback ride, and hike. States she has spraying with urination and is unable to squat to pee in the [place] like her friends do. Reports feeling full and like she is not emptying. States last week she was lifting bails of hay and she felt like she was full of urine after and having back pain. States her sister gave her Bactrim to start last weekend because she felt like she had a UTI. She took a total of 5 pills. SANDRA: No UUI: No Pads: 0 Urgency: Yes Frequency: Yes Nocturia: 5 times/night Straining to void: Yes Empties to completion: No Fluids: 42 oz water/day Caffeine: 3-4 cups of coffee/ decaf ROS: Hematuria: No UTIs: No Kidney stones: No Bowel function: Bowel Movement per Week: Daily Constipation: No Diarrhea: No Fecal Incontinence: No Gynecological History: Vaginal deliveries: 0 Menopausal: Yes Prior hysterectomy: Yes History of abnormal PAPs: No Hormone replacement: No Prolapse Symptoms: Bulge/pressure: No Sexual History: Sexually active: Yes Desires to be sexually active in future: Yes Dyspareunia: Yes Past Medical History Past Medical History: Diagnosis Date Arthritis Breast cancer 1998 right breast, tumor cells were ER and AR positive , HER-2/lance receptor over-expression negative Essential hypertension, benign Gout 2016 History of chemotherapy 1998 History of radiation therapy 1998 right breast Hyperlipidemia Neuropathy of lower extremity 04/2012 both feet Plantar fasciitis 04/2012 left Past Surgical History Past Surgical History: Procedure Laterality Date ARTHROPLASTY KNEE FEMORAL CONDYLE/TIBIAL PLATEAU Right 02/26/2021 Laterality: Right; Surgeon: Herminio Braxton MD; [facility] KNEE ARTHROSCOPY Left 2016 torn meniscus CORE BIOPSY OF THE BREAST Left 2007 Fat necrosis and scarring with dystrophic microcalcifications RECONSTRUCTION NIPPLE 08-15-2007 revision of right breast reconstruction, right nipple reconstruction with star flap RECONSTRUCTION BREAST 02-15-2007 right breast REDUCTION REVISION BREAST Left 02/15/2007 benign OOPHORECTOMY Bilateral 2004 HYSTERECTOMY 2003 MASTECTOMY Right 09-07-1999 Residual IDC, DCIS, LN containing mets CORE BIOPSY OF THE BREAST Right 08/25/1999 IDC/DCIS LAMINECTOMY VERTEBRAL SEGMENT SACRAL TONSILLECTOMY Medications Current Outpatient Medications Medication Sig Dispense Refill allopurinol 100 MG tablet Take 1 tablet by mouth. Every other day atorvastatin 10 MG Tab Take 1 tablet by mouth at bedtime. cholecalciferol 10 MCG (400 UNIT) tablet Take 1 tablet by mouth daily. lisinopril 5 MG tablet Take 1 tablet by mouth 2 times daily. 180 tablet 3 Qsymia 3.75-23 MG Cap SR 24HR Take 1 capsule by mouth daily. venlafaxine 50 MG tablet Take 0.5 tablets by mouth daily. 90 tablet 1 apixaban 2.5 MG tablet Take 1 tablet by mouth every 12 hours. 70 tablet 0 ascorbic acid 250 MG tablet Take 250 mg by mouth daily. (Patient not taking: Reported on 01/04/2023) celecoxib 200 MG capsule Take 1 capsule by mouth every 12 hours. 180 capsule 1 Diclofenac Sodium (Voltaren) 1 % Gel gel Apply 2 g topically 4 times daily. (Patient not taking: Reported on 01/04/2023) 100 g 1 docusate 100 MG capsule Take 1 capsule by mouth 2 times daily. 60 capsule 0 gabapentin 100 MG capsule Take 1 capsule by mouth at bedtime. 30 capsule 0 Tamsulosin HCl 0.4 MG capsule Take 1 capsule by mouth daily. 30 capsule 3 traMADol 50 MG tablet Take 1 tablet by mouth every 4 hours as needed for up to 7 days. 42 tablet 0 zinc sulfate 220 MG capsule Take 220 mg by mouth daily. (Patient not taking: Reported on 01/04/2023) No current facility-administered medications for this visit. Allergies Allergies Allergen Reactions Ivp Dye, Iodine Containing Swelling Social History Social History Tobacco Use Smoking status: Former Types: Cigarettes Quit date: 1998 Years since quittin.1 Smokeless tobacco: Never Vaping Use Vaping Use: Never used Substance Use Topics Alcohol use: Yes Alcohol/week: 1.0 standard drink Types: 1 Cans of beer per week Comment: occassional Drug use: No Family History Family History Problem Relation Age of Onset Breast Cancer Maternal Cousin Breast Cancer Mother 60 Diabetes Mother Breast Cancer Maternal Grandmother Lung Cancer Father Hypertension Father Heart Disease - Other Father Gout Father Ovarian Cancer Neg Hx Uterine Cancer Neg Hx Review of Systems The complete review of systems was completed. Pertinent positives and negatives are noted in HPI. Physical Exam BP 116/82 (BP Location: Right arm, BP Position: Sitting) Pulse 93 Ht 1.676 m (5' 6 ) Wt 95.7 kg (211 lb) SpO2 100% BMI 34.06 kg/m Smoking Status Former Body mass index is 34.06 kg/m . Constitutional: NAD, WDWN. Labs Lab Results Component Value Date WBC 8.78 02/26/2021 HGB 11.7 02/26/2021 HCT 36.0 02/26/2021 PLATELET 234 02/26/2021 MCV 98.9 (H) 02/26/2021 Lab Results Component Value Date SODIUM 137 02/26/2021 POTASSIUM 4.4 02/26/2021 CHLORIDE 105 02/26/2021 CO2 21 (L) 02/26/2021 BUN 22 02/26/2021 CREATSERUM 0.96 02/26/2021 GLUCOSE negative 01/04/2023 Lab Results Component Value Date APPEARANCE clear 01/04/2023 COLOR yellow 01/04/2023 PH 5.5 01/04/2023 SPECIFICGRAV 1.020 01/04/2023 PROTEIN negative 01/04/2023 GLUCOSE negative 01/04/2023 BILIRUBIN negative 01/04/2023 UROBILINOGEN 0.2 01/04/2023 BLOOD negative 01/04/2023 NITRITE negative 01/04/2023 LEUKOCYTE negative 01/04/2023 Post-Void Residual A post-void residual was measured by ultrasonic bladder scanner. PVR: 122 Radiographic Studies None Assessment Ms. Joshua is a 57 y.o. female with the following diagnosis: ICD-10-CM 1. Feeling of incomplete bladder emptying R39.14 2. Urinary frequency R35.0 3. Nocturia R35.1 4. Dyspareunia in female N94.10 Plan 1. Lifestyle modifications - Maintain adequate hydration of 64 oz water/day - Restrict fluids 2-3 hours prior to bedtime 2. Urine dip/PVR to rule out infection/ensure emptying 3. DEIDRE ordered today 4. Trial Flomax 0.4 mg daily at bedtime 5. Follow-up in 4 weeks in person for repeat PVR/ medication assessment/ Pelvic exam All questions were answered. NINOSKA Tellez documented in this encounter [facility] 06-11-2022 Telephone encounter Note Scheduled patient all appts related to 10/01 surgery Also [facility] Misc[facility] Notes Scheduled patient all appts related to 10/01 surgery Also sent patient Novasthart message LM for patient Also sending a my chart Patient is returning Coty's call. She is wanting to wait until after vacation. She is looking to have surgery . Lm for patient to schedule surgery with Dr Yareli Arteaga achilles reconstruction, [facility] tendon transfer [place] outpt No PAT Needs POVs compac scheduled inperson visit, consent 2 wks prior Also sent mychart documented in this encounter [facility] 06-03-2022 Telephone encounter Note LM for patient Also sending a my chart [facility] 06-03-2022 Miscellaneous Notes LM for patient Also sending a my chart Patient is returning Coty's call. She is wanting to wait until after vacation. She is looking to have surgery . Lm for patient to schedule surgery with Dr Yareli Arteaga achilles reconstruction, [facility] tendon transfer [place] outpt No PAT Needs POVs compac scheduled inperson visit, consent 2 wks prior Also sent mychart documented in this encounter [facility] 05-31-2022 Telephone encounter Note Patient is returning Coty's call. She is wanting to wait until after vacation. She is looking to have surgery . [facility] 05-31-2022 Miscellaneous Notes Patient is returning Coty's call. She is wanting to wait until after vacation. She is looking to have surgery . Lm for patient to schedule surgery with Dr Yareli Arteaga achilles reconstruction, [facility] tendon transfer [place] outpt No PAT Needs POVs compac scheduled inperson visit, consent 2 wks prior Also sent mychart documented in this encounter [facility] 05-31-2022 Telephone encounter Note Lm for patient to schedule surgery with Dr Yareli Arteaga achilles reconstruction, [facility] tendon transfer [place] outpt No PAT Needs POVs compac scheduled inperson visit, consent 2 wks prior Also sent mychart [facility] 02-18-2022 Instructions Kel Mccoy MD - 02/18/2022 10:23 AM EDT Radiology: Radiographs: 3 weightbearing views of the Left ankle (02/18/22) were independently reviewed and demonstrate no acute osseous abnormality, normal alignment, no arthritic changes Assessment/Plan: ICD-10-CM 1. Chronic pain of left ankle M25.572 XR ANKLE LEFT 3+ VIEWS G89.29 2. 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 We reviewed treatment options at length - counseled on rest/ice/elevation/bracing/NSAID use and progressive return to activity - will use CAM boot x2 weeks - trial [place] sock - trial Voltaren gel - Physical Therapy consult for heel cord stretching and eccentric strengthening - followup 3 months as needed (Telehealth); if not improving would consider blue rocker AFO and ultimately if requires surgery would plan for debridement with [facility] tendon transfer documented in this encounter [facility] 02-18-2022 History of Present illness Narrative [facility] Date of Visit: 02/18/2022 Chief Complaint: Chief Complaint Patient presents with Left Ankle - Pain Pt reports pain in L ankle for the past 2 months. Pt reports stiffness at night, 1/10. Pain is constant sharp pain in back of ankle. History of Present Illness: Esme Joshua is a 56 y.o. female referred by Herminio Braxton MD who presents today complaining of Left ankle pain. Insidious onset in , no trauma or change in activity. Pain localized to noninsertional Achilles. Pain currently rated 2/10 but increases to 8/10, sharp and aching. Worse with prolonged WB activity, direct pressure, first steps after sitting. Improved with rest/elevation. Avid equestrian and having pain with riding. Review of Systems: General ROS: negative for - chills, fever or night sweats Respiratory ROS: no cough, shortness of breath, or wheezing Cardiovascular ROS: no chest pain or dyspnea on exertion Musculoskeletal ROS: positive for - joint pain as above. Neurological ROS: no TIA or stroke symptoms Skin/ integumentary ROS: no generalized rashes, no generalized erythema, no open lesions Pertinent positives reviewed in chart, otherwise negative to a complete review of systems. Medications: has a current medication list which includes the following prescription(s): acetaminophen, allopurinol, amoxicillin-clavulanate, apixaban, ascorbic acid, atorvastatin, celecoxib, cholecalciferol, cyanocobalamin, cyclobenzaprine, docusate, gabapentin, lisinopril, polyethylene glycol, sennosides, tramadol, venlafaxine, vitamin a, and zinc sulfate. Allergies: is allergic to ivp dye, iodine containing. 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 Past Surgical History: has a past surgical history that includes tonsillectomy; reconstruction nipple (08-15-2007); knee arthroscopy (Left, 2015); core biopsy of the breast (Right, 08/25/1999); core biopsy of the breast (Left, 2007); reconstruction breast (02-15-2007); reduction revision breast (Left, 02/15/2007); hysterectomy (2002); oophorectomy (Bilateral, 2003); mastectomy (Right, 09-07-1999); laminectomy vertebral segment sacral; and arthroplasty knee femoral condyle/tibial plateau (Right, 02/26/2021). Family History: no known history of clotting disorders Social History: reviewed in chart. reports that she quit smoking about 23 years ago. Her smoking use included cigarettes. She has never used smokeless tobacco.. Occupation: Homemaker Physical Examination: GENERAL: alert and oriented x3; well-appearing, no acute distress Wt Readings from Last 1 Encounters: 02/18/22 100.7 kg (222 lb) , Body mass index is 34.77 kg/m . HEAD: Normocephalic, atraumatic. CHEST: Equal chest rise bilaterally. CARDIOVASCULAR: palp DP pulses bilaterally MUSCULOSKELETAL: Gait: mild limp Inspection/ Palpation: - Normal appearing plantigrade feet; normal callosities Left foot and ankle: +mild swelling/thickening of noninsertional Achilles with focal ttp; no other ttp - no ttp @medial/lateral malleolus - no ttp @peroneal/PT tendons - no ttp @medial/lateral shoulder of talus Range of Motion: - supple ankle/subtalar motion - R ankle: DF- 15 PF- 50; L ankle: DF- 15 PF- 50 Stability: anterior drawer- No Muscle Strength and Tone: intact strength to toe flex/ ext, ankle df/ pf/ ev/ inv NEUROVASCULAR: no focal deficits; sensation intact and symmetric to light touch in sural/ saph/ deep per/ sup per/ tibial n distributions; brisk cap refill with palp DP pulse bilat -no tinels SKIN: no erythema/cellulitis; no signs of infection. Radiology: Radiographs: 3 weightbearing views of the Left ankle (02/18/22) were independently reviewed and demonstrate no acute osseous abnormality, normal alignment, no arthritic changes Assessment/Plan: ICD-10-CM 1. Chronic pain of left ankle M25.572 XR ANKLE LEFT 3+ VIEWS G89.29 2. 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 We reviewed treatment options at length - counseled on rest/ice/elevation/bracing/NSAID use and progressive return to activity - will use CAM boot x2 weeks - trial [place] sock - trial Voltaren gel - Physical Therapy consult for heel cord stretching and eccentric strengthening - followup 3 months as needed (lives in [place], [facility]); if not improving would consider blue rocker AFO and ultimately if requires surgery would plan for debridement with FHL tendon transfer The diagnosis and treatment plan were discussed at length. The patient understands the plan and all questions were answered. documented in this encounter [facility] 02-12-2022 History of Present illness Narrative Esme M Josiane presents for 1 year follow-up of Right knee progressing well. Pre-op symptoms are improved following surgery. Reports increasing activity without setbacks, Difficulty with stairs and still taking Celebrex Continuing home exercise program Ambulating without assistance PHYSICAL EXAMINATION Right Knee Incision healed small effusion 2+ DP/PT pulse Sensation intact to light touch and pinprick distally bilaterally Intact straight leg raise 5/5 knee extension strength Range of motion: 0 - 130 < 5 mm anterior translation at 90-degrees flexion < 5 mm varus/valgus angulation throughout ROM IMAGING Knee X-rays demonstrate stable components with appropriate alignment . Aurora is healing well. Physical therapy will will continue with home exercise program Pain medication: celebrex DVT prophylaxis: completed Dental antibiotic prophylaxis: not required after first year given current dental hygiene and available literature Follow-up in 1 year Will refer to foot and ankle team to evaluate right achilles tendon issues. documented in this encounter [facility] Diagnosis S/P right unicompartmental knee replacement Knee joint replacement by other means [facility] Diagnosis Chronic pain of left ankle- Primary Achilles tendinitis of left lower extremity Achilles bursitis or tendinitis [facility] Diagnosis Achilles tendinitis of left lower extremity Achilles bursitis or tendinitis [facility] Diagnosis Personal history of malignant neoplasm of breast Encounter for screening mammogram for malignant neoplasm of breast Other screening mammogram Achilles tendinosis of left lower extremity [facility] Diagnosis Feeling of incomplete bladder emptying- Primary Incomplete bladder emptying Urinary frequency Nocturia Dyspareunia in female [facility] Diagnosis Feeling of incomplete bladder emptying- Primary Incomplete bladder emptying Urinary frequency Nocturia Dyspareunia in female [facility] Diagnosis Feeling of incomplete bladder emptying- Primary Incomplete bladder emptying Urinary frequency Nocturia Dyspareunia in female [facility]ening [facility] for [facility] cancer [facility] Consultation (Routine) - New Request Specialty Diagnoses / Procedures Referred By Allegra peralta Referred To Contact Orthopaedic Surgery Diagnoses Chronic pain of right ankle Herminio Braxton MD [address] [place] [address] Kel Mccoy MD [address] [place] [address] Referral ID Status Reason Start Date Expiration Date V isits Requested Visits Authorized [id number] New Request 02/12/2022 03/09/2023 1 1 [facility] Reason for Referral Specialty Diagnoses / Procedures Referred By Allegra peralta Referred To Contact Diagnoses S/P right unicompartmental knee replacement Procedures XR KNEE RIGHT WITH BILATERAL STANDING 1 VIEW Kim Garza, GREEN WARE CASTER-MEAT DEPARTMENT MANAGER [address] [place] [address] Referral ID Status Reason Start Date Expiration Date V isits Requested Visits Authorized [id number] New Request 02/08/2022 03/05/2023 1 1 Specialty Diagnoses / Procedures Referred By Allegra peralta Referred To Contact Physical Therapy Diagnoses Achilles tendinitis of left lower extremity Kel Mccoy MD [address] [place] [address] Referral ID Status Reason Start Date Expiration Date V isits Requested Visits Authorized [id number] New Request 02/18/2022 03/15/2023 1 1 Scheduling Instructions [facility] [address] 2nd Floor [place], [place] [id number] Fax [facility]) [address], [place] [address] FAX [facility] [address] [place] [address] FAX [facility] [address] [address] [place] [address] FAX [facility] [address] [place] [address] FAX [facility] [address], [place] [id number] FAX [facility] [address] [place], [place] [phone] FAX [facility] [address] [place], [place] [address] FAX Specialty Diagnoses / Procedures Referred By Allegra peralta Referred To Contact Diagnoses Achilles tendinitis of left lower extremity Procedures MRI ANKLE LEFT WITHOUT CONTRAST AR MRI LOWER EXTREM JT, W/O CONTRAST Kel Mccoy MD [address] [place] [address] Referral ID Status Reason Start Date Expiration Date Visits Re quested Visits Authorized [id number] Closed 05/13/2022 06/07/2023 1 1 Specialty Diagnoses / Procedures Referred By Allegra peralta Referred To Contact Diagnoses Personal history of malignant neoplasm of breast Encounter for screening mammogram for malignant neoplasm of breast Procedures MAMMO SCREENING WITH KALIN LEFT Jessica Garcia, GREEN WARE CASTER-MEAT DEPARTMENT MANAGER [address] [place] [address] Referral ID Status Reason Start Date Expiration Date V isits Requested Visits Authorized [id number] New Request 08/19/2021 09/13/2022 1 1 Specialty Diagnoses / Procedures Referred By Allegra peralta Referred To Contact Diagnoses Feeling of incomplete bladder emptying Urinary frequency Procedures US RENAL Britany Woodward, GREEN WARE CASTER-MEAT DEPARTMENT MANAGER [address] [facility] [address] [place] [address] Referral ID Status Reason Start Date Expiration Date V isits Requested Visits Authorized [id number] New Request 01/04/2023 01/29/2024 1 1 Summary Purpose Family History No Family History Records Found Advance Directives No Advanced Directives Records Found Additional Source Comments Reason for Visit (unrecogniz ed section and content) Specialty Diagnoses / Procedures Referred By Allegra t Referred To Contact Diagnoses S/P right unicompartmental knee replacement Procedures XR KNEE RIGHT WITH BILATERAL STANDING 1 VIEW Kim Garza, GREEN WARE CASTER-MEAT DEPARTMENT MANAGER [address] [facility] 1[address] [place] [address] Referral ID Status Reason Start Date Expiration Date V isits Requested Visits Authorized [id number] New Request 02/08/2022 03/05/2023 1 1 Reason Comments Pain Pt reports pain in L ankle for the past 2 months. Pt reports stiffness at night, 11/09. Pain is constant sharp pain in back of ankle. Specialty Diagnoses / Procedures Referred By Allegra peralta Referred To Contact Orthopaedic Surgery Diagnoses Chronic pain of right ankle Herminio Braxton MD [address] [place] [address] Kel Mccoy MD [address] [place] [address] Referral ID Status Reason Start Date Expiration Date V isits Requested Visits Authorized [id number] New Request 02/12/2022 03/09/2023 1 1 Specialty Diagnoses / Procedures Referred By Allegra peralta Referred To Contact Diagnoses Chronic pain of right ankle Procedures XR ANKLE RIGHT 3+ VIEWS Kel Mccoy MD [address] [place] [address] Referral ID Status Reason Start Date Expiration Date Visits Re quested Visits Authorized [id number] Closed 02/17/2022 03/14/2023 1 1 Specialty Diagnoses / Procedures Referred By Allegra peralta Referred To Contact Diagnoses Achilles tendinitis of left lower extremity Procedures MRI ANKLE LEFT WITHOUT CONTRAST AR MRI LOWER EXTREM JT, W/O CONTRAST Kel Mccoy MD [address] [place] [address] Referral ID Status Reason Start Date Expiration Date Visits Re quested Visits Authorized [id number] Closed 05/13/2022 06/07/2023 1 1 Reason Onset Date Comments Surgery 05/31/2022 Specialty Diagnoses / Procedures Referred By Allegra peralta Referred To Contact Diagnoses Personal history of malignant neoplasm of breast Encounter for screening mammogram for malignant neoplasm of breast Procedures MAMMO SCREENING WITH KALIN LEFT Jessica Garcia, GREEN WARE CASTER-MEAT DEPARTMENT MANAGER [address], [address] [place] [address] Referral ID Status Reason Start Date Expiration Date V isits Requested Visits Authorized [id number] New Request 08/19/2021 09/13/2022 1 1 Reason Comments New Patient Urinary urgency Reason Comments Follow-up 4 week follow up Reason Comments Follow-up 6 month follow up Specialty Diagnoses / Procedures Referred By Allegra peralta Referred To Contact Diagnoses Screening mammogram for breast cancer Procedures MAMMO SCREENING WITH KALIN LEFT MAMMO SCREENING LEFT Mammography-Lesley, Self-Requested [address] [place] [address] [facility] [address] [place] [address] Referral ID Status Reason Start Date Expiration Date V isits Requested Visits Authorized [id number] New Request 06/09/2023 07/03/2024 1 1 Care Teams (unrecognized sec tion and content) Network Relations Consultant Relationship Specialty Start Date End Date Farhan Kerr MD [address] [place] [address] PCP - General Family Medicine 05/20/17 Network Relations Consultant Relationship Specialty Start Date End Date Farhan Kerr MD [address] [place], [place] [id number] PCP - General Family Medicine 05/20/17 Network Relations Consultant Relationship Specialty Start Date End Date Farhan Kerr MD [address] [facility] [place] [address] PCP - General Family Medicine 05/20/17 Network Relations Consultant Relationship Specialty Start Date End Date Farhan Kerr MD [address] [facility] [place] [address] PCP - General Family Medicine 05/20/17 Network Relations Consultant Relationship Specialty Start Date End Date Farhan Kerr MD [address] [facility] [place] [address] PCP - General Family Medicine 05/20/17 Network Relations Consultant Relationship Specialty Start Date End Date Farhan Kerr MD [address] [facility][[address] [place] [address] PCP - General Family Medicine 05/20/17 Network Relations Consultant Relationship Specialty Start Date End Date Farhan Kerr MD [address] [facility] [place] [address] PCP - General Family Medicine 05/20/17 Network Relations Consultant Relationship Specialty Start Date End Date Farhan Kerr MD [address] [facility][[address] [place] [address] PCP - General Family Medicine 05/20/17 Network Relations Consultant Relationship Specialty Start Date End Date Farhan Kerr MD [address] [facility] [place] [address] PCP - General Family Medicine 05/20/17 Network Relations Consultant Relationship Specialty Start Date End Date Farhan Kerr MD [address] [facility][[address] [place] [address] PCP - General Family Medicine 05/20/17 INFORMATION SOURCE (unrecogn ized section and content) FOR RECORDS PERTAINING TO PATIENTS WHO ARE OR HAVE BEEN ENROLLED IN A CHEMICAL DEPENDENCY/SUBSTANCEABUSE PROGRAM, SOME INFORMATION MAY BE OMITTED. This clinical summary was aggregated from multiple sources. Caution should be exercised in using it in the provision of clinical care. This summary normalizes information from multiple sources, and as a consequence, information in this document may materially change the coding, format and clinical context of patient data. In addition, data may be omitted in some cases. CLINICAL DECISIONS SHOULD BE BASED ON THE PRIMARY CLINICAL RECORDS. [facility] [employer] [facility]. provides no warranty or guarantee of the accuracy or completeness of information in this document.
== END 2024-01-06 23:59 | disposition home or self-care (01) ==
LOC: US 09:06 → OPUS 09:10
PROVIDERS: PCP Family Medicine; Referring Provider Family Medicine; Visit Provider Family Medicine
DX: E66.9 Obesity, unspecified (principal); Z82.49 Family history of ischemic heart disease and other diseases of the circulatory system
CPT/HCPCS: 76775

== ENCOUNTER → 2024-03-19 | Outpatient (CLI) | payer BC, SELFPAY ==
--- NOTE | 2024-03-19 11:43 | RAD_ITS ---
STUDY: X-RAY - RIGHT TIBIA AND FIBULA REASON FOR EXAM: Female, 58 years old. LOWER LEG INJURY TECHNIQUE: 3 views of the right tibia and fibula were obtained. COMPARISON: None. FINDINGS: There is a medial unicompartmental knee arthroplasty in place. There is no periprosthetic fracture. Intact visualized tibia. Normal visualized fibula. There is no demonstrated acute fracture. There is a small plantar calcaneal spur. The soft tissue structures are unremarkable. RAD/Tibia & Fibula 2 Views IMPRESSION: No demonstrated acute fracture. Small plantar calcaneal spur. Electronically Signed: Obie Jernigan MD at 12:36 EDT ,
== END | disposition home or self-care (01) ==
PROVIDERS: PCP Family Medicine; Referring Provider Family Medicine; Visit Provider Family Medicine
DX: S89.91XA Unspecified injury of right lower leg, initial encounter (principal)
CPT/HCPCS: 73590

== ENCOUNTER 2024-12-21 16:02 | Outpatient (CLI) | payer BC, SELFPAY ==
--- NOTE | 2024-12-21 16:05 | RAD_ITS ---
PROCEDURE: RIGHT SHOULDER, FOUR VIEWS REASON FOR EXAM: PATIENT FELL. TECHNIQUE: Four views. COMPARISON: 10/07/2022 FINDINGS: RIGHT SHOULDER: No fracture. No suspicious bone lesion. Normal alignment of the acromioclavicular and glenohumeral joints. Metallic clips are noted along the right lateral chest wall. RAD/Shoulder min 2 Views IMPRESSION: No acute findings involving the right shoulder. Reading Location: [facility]
== END 2024-12-21 23:59 | disposition home or self-care (01) ==
LOC: MTRAD 16:03
PROVIDERS: PCP Family Medicine; Referring Provider Family Medicine; Visit Provider Family Medicine
DX: M25.511 Pain in right shoulder (principal); W19.XXXA Unspecified fall, initial encounter
CPT/HCPCS: 73030

== ENCOUNTER → 2025-06-19 | Outpatient (CLI) | payer BC, SELFPAY ==
--- NOTE | 2025-06-19 08:02 | VDLE_ITS ---
Reason For Study Reason For Study: Swelling RIGHT LEFT CFV is compressible, spontaneous, phasic, competent GSV is normal. and demonstrates normal augmentation. CFV is compressible, spontaneous, phasic, competent, Procedure and demonstrates normal augmentation. This is a venous duplex using B-mode, color flow and FV is compressible, spontaneous, phasic, competent spectral Doppler. and demonstrates normal augmentation. Exam performed in department. POP V is compressible, spontaneous, phasic, competent A preliminary report was called and/or faxed to [facility] and demonstrates normal augmentation. Humberto. T/P Trunk is compressible. PTV is compressible. LT PerV is compressible. VL/Venous Duplex US, Unilateral Interpretation Summary Deep veins of the left lower extremity are patent and compressible segmentally. There is no evidence of left lower extremity deep vein thrombosis. Valvular competence appears intact within the p roximal deep venous system on the left . The left great saphenous vein appears patent and compressible segmentally. The right common femoral vein is patent and compressible . Ordering Physician: CAIITE MURRAY Referring Physician: Farhan Moreira Performed By: Mariel Ruggiero RVT
== END | disposition home or self-care (01) ==
LOC: CVS 07:58
PROVIDERS: PCP Family Medicine
DX: Z96.652 Presence of left artificial knee joint (principal); M79.89 Other specified soft tissue disorders
CPT/HCPCS: 93971